=== PATIENT | male | born 1950 | race Caucasian/White ===

== ENCOUNTER → 2020-05-16 15:56 | Outpatient (CLI) | payer MEDICARE, BC, SELFPAY ==
[2015-05-13 08:19] VITALS: BMI 41.1
[2020-05-16 18:03] LABS: Vitamin B12 631 pg/mL (211-911); Vitamin D,25 Hydroxy 22.2 ng/mL
[2020-05-16 18:08] LABS: Absolute Lymphocyte Count 1.49 X10^3/uL (0.83-4.51); Absolute Neutrophil Count 9.2 X10^3/uL (2.0-7.7); Basophil# 0.03 X10^3/uL; Basophil% 0.3 % (0-1); Eosinophil# 0.16 X10^3/uL; Eosinophils% 1.4 % (0-5); Hematocrit 44.3 % (40-54); Lymphocyte # 1.49 X10^3/ul (4.0); Lymphocyte % 12.6 % (19-41); Mean Corp Hgb Conc 31.6 g/dL (32-36); Mean Corpuscular Hgb 29.6 pg (27.0-32.0); Mean Corpuscular Volume 93.7 fL (80-94); Mean Platelet Vol. 12.3 fl (6.2-12.0); Monocyte# 0.82 X10^3/uL; NRBC Flagged by Analyzer 0 % (0-5); Neutrophil # 9.24 X10^3/uL (2.7-7.7); Neutrophil % 78.3 % (47-70); Platelet Count 234 K/mm3 (150-450); RBC Distribution Width CV 13.3 % (11.6-14.6); RBC Distribution Width SD 45.6 fl (35.1-43.9); Red Blood Count 4.73 M/mm3 (4.6-6.2); White Blood Count 11.8 K/mm3 (4.4-11.0)
[2020-05-16 18:26] LABS: ALB/GLOB Ratio 0.9 RATIO (0.9-2.4); AST(SGOT) 15 U/L (15-37); Alanine Aminotransfer ALT/SGPT 25 U/L (16-61); Albumin, Serum 3.7 g/dL (3.2-5.0); Alkaline Phosphatase 87 U/L (45-117); Anion Gap 5 (5-15); BUN 21 mg/dL (7-18); BUN/Creat Ratio 17.5 RATIO (10-20); CPK Total, Creatine Kinase 65 U/L (39-308); Calcium,Total 9.7 mg/dL (8.5-10.1); Chloride 105 mmol/L (98-107); Cholesterol 150 mg/dL (200); EST Glomerular Filtration Rate 64 mL/min (>60); Est Glom Filt Rate - Afr Amer 77 mL/min (>60); Ferritin 30 ng/mL (26-388); Globulin 4.1 g/dL (2.2-4.2); Glucose 90 mg/dL (74-106); High Density Lipoprotein 49 mg/dL; Magnesium 2.3 mg/dL (1.6-2.6); Potassium 4.6 mmol/L (3.5-5.1); Protein, Total 7.8 g/dL (6.4-8.2); Sodium Level 136 mmol/L (136-145); Thyroid Stim Hormone (TSH) 0.71 uIU/mL (0.358-3.74); Triglycerides 136 mg/dL; Very Low Density Lipoprotein 27 mg/dL (5-40)
== END ==
PROVIDERS: PCP Family Medicine; Referring Provider Family Medicine; Visit Provider Family Medicine
DX: I10 Essential (primary) hypertension (principal); E78.5 Hyperlipidemia, unspecified; R53.83 Other fatigue; R25.2 Cramp and spasm
CPT/HCPCS: 36415; 80053; 80061; 82306; 82550; 82607; 82728; 83735; 84443; 85025

== ENCOUNTER → 2020-05-28 13:53 | Outpatient (CLI) | payer MEDICARE, BC, OTHER, SELFPAY ==
--- NOTE | 2020-05-28 14:04 | ECHOCS_ITS ---
Reason For Study: MURMUR Procedure This was a 2D Doppler, Color Flow transthoracic echocardiogram. The study was technically difficult. Contrast injection was performed. Exam performed in department. Left Ventricle Normal LV size. Left ventricular systolic function is normal. The estimated ejection fraction is 65 %. Diastolic function is indeterminate. No regional wall motion abnormalities noted. Right Ventricle Normal RV size. Normal systolic function. Atria The left atrium is mildly enlarged. Normal right atrium. No doppler evidence for ASD. Bubble contrast study negative for right to left interatrial shunt. Mitral Valve There is mild mitral annular calcification. Anterior leaflet diffuse mitral valve thickening. Trivial mitral valve insufficiency. Tricuspid Valve Normal tricuspid valve. Mild tricuspid valve insufficiency. Right ventricular systolic pressure estimated to be 37 mmHg. Aortic Valve Trisinus/trileaflet aortic valve. Mild diffuse aortic valve thickening. Moderate diffuse aortic valve calcification. Severe aortic stenosis. Pulmonic Valve The pulmonic valve is not well visualized. Great Vessels Mild to moderately dilated aortic root. Pericardium/Pleural No pericardial effusion. Medication 22 gauge I.V. with prn adaptor inserted into right arm. Performed a rapid injection of agitated mix of 9 cc saline and 1cc air to assess for atrial septal defect. Diluted definity 5.0ml given slow IV push to enhance endocardial definition. MMode/2D Measurements & Calculations LVIDd: 4.3 cm IVSd: 1.0 cm LVOT diam: 2.0 cm LVIDs: 2.6 cm LVPWd: 1.1 cm RVDd: 4.0 cm FS: 38.9 % LVOT area: 3.2 cm2 Ao root diam: 4.5 cm LAV(MOD-bp): 59.0 ml LA A4 area: 22.6 cm2 LAV(MOD-bp) Indexed: 24.5 ml/m2 LAV(MOD-sp2): 49.2 ml LAV(MOD-sp4): 66.7 ml LA dimension(2D): 4.3 cm RA A4 area: 21.1 cm2 Time Measurements MV dec time: 0.40 sec Doppler Measurements & Calculations MV E max girish: 54.6 cm/sec Lat Peak E' Girish: 5.4 cm/sec Med Peak E' Girish: 4.9 cm/sec MV A max girish: 85.4 cm/sec E/E' lat: 10.2 E/E' med: 11.1 MV E/A: 0.64 Ao V2 max: 388.3 cm/sec LV V1 max: 88.8 cm/sec SV(LVOT): 66.2 ml Ao max P.8 mmHg LV V1 max P.2 mmHg Ao V2 mean: 296.4 cm/sec LV V1 mean P.1 mmHg Ao mean P.6 mmHg LV V1 mean: 70.5 cm/sec Ao V2 VTI: 82.5 cm LV V1 VTI: 20.9 cm RAY(I,D): 0.80 cm2 RAY(V,D): 0.72 cm2 PA V2 max: 122.2 cm/sec TR max girish: 292.9 cm/sec TR max P.3 mmHg Interpretation Summary The study was technically difficult. Contrast injection was performed. Left ventricular systolic function is normal. The estimated ejection fraction is 65 %. The left atrium is mildly enlarged. There is mild mitral annular calcification. Anterior leaflet diffuse mitral valve thickening. Trivial mitral valve insufficiency. Mild tricuspid valve insufficiency. Severe aortic stenosis. Mild to moderately dilated aortic root. Right ventricular systolic pressure estimated to be 37 mmHg. Diastolic function is indeterminate. Ordering Physician: Marcial Drake Referring Physician: Marcial Drake Performed By: Melisa Pena, RDCS, RVT
== END ==
PROVIDERS: PCP Family Medicine; Referring Provider Family Medicine; Visit Provider Family Medicine
DX: R01.1 Cardiac murmur, unspecified (principal)
CPT/HCPCS: 93306; Q9957; A4216; C8929

== ENCOUNTER 2020-07-03 06:53 | Day surgery (SDC) | payer MEDICARE, BC, SELFPAY ==
[2020-06-27 10:34] VITALS: BMI 37.0
--- NOTE | 2020-06-28 14:32 | RAD_ITS ---
STUDY: X-RAY CHEST REASON FOR EXAM: Male, 69 years old. chronic fatigue, family physician checking to see if pt has failing heart valve. TECHNIQUE: PA and lateral views of the chest. COMPARISON: None. FINDINGS: The lungs are clear and expanded. There is no demonstrated pleural abnormality. Normal size heart. Normal mediastinum and emily. Normal visualized pulmonary arteries. Normal visualized aortic arch and descending thoracic aorta. Normal visualized thoracic spine. Normal visualized ribs, clavicles, and shoulders. There is no demonstrated abnormality of the visualized soft tissue structures of the upper abdomen. RAD/Chest PA and Lateral IMPRESSION: Normal x-ray examination of the chest. Electronically Signed: Castro Holley MD at 17:56 EST Tel , Service support ,
[2020-06-28 15:04] LABS: Absolute Lymphocyte Count 2.02 X10^3/uL (0.83-4.51); Absolute Neutrophil Count 6.9 X10^3/uL (2.0-7.7); Basophil# 0.04 X10^3/uL; Basophil% 0.4 % (0-1); Eosinophil# 0.33 X10^3/uL; Eosinophils% 3.2 % (0-5); Hematocrit 46.1 % (40-54); Hemoglobin 14.9 g/dL (13.0-16.5); Lymphocyte # 2.02 X10^3/ul (4.0); Lymphocyte % 19.8 % (19-41); Mean Corp Hgb Conc 32.3 g/dL (32-36); Mean Corpuscular Hgb 29.6 pg (27.0-32.0); Mean Corpuscular Volume 91.7 fL (80-94); Mean Platelet Vol. 11.2 fl (6.2-12.0); Monocyte# 0.83 X10^3/uL; Monocyte% 8.1 % (0-10); NRBC Flagged by Analyzer 0 % (0-5); Neutrophil # 6.93 X10^3/uL (2.7-7.7); Neutrophil % 68.1 % (47-70); Platelet Count 337 K/mm3 (150-450); RBC Distribution Width CV 13.2 % (11.6-14.6); RBC Distribution Width SD 44.2 fl (35.1-43.9); Red Blood Count 5.03 M/mm3 (4.6-6.2); White Blood Count 10.2 K/mm3 (4.4-11.0)
[2020-06-28 15:23] LABS: Partial Thromboplast Time 30.9 Seconds (24.1-36.2); Prothrombin Time (Protime)PT. 13.1 SECONDS (11.7-14.9)
[2020-06-28 15:54] LABS: Anion Gap 8 (5-15); BUN 22 mg/dL (7-18); BUN/Creat Ratio 17.5 RATIO (10-20); Calcium,Total 10.1 mg/dL (8.5-10.1); Chloride 108 mmol/L (98-107); Creatinine, Serum 1.26 mg/dL (0.70-1.30); EST Glomerular Filtration Rate 60 mL/min (>60); Est Glom Filt Rate - Afr Amer 73 mL/min (>60); Glucose 109 mg/dL (74-106); Sodium Level 141 mmol/L (136-145)
[2020-07-02 07:23] VITALS: BMI 37.0
--- NOTE | 2020-07-02 20:01 | PCM.HP.BLA ---
Problem List (1) Nonrheumatic aortic (valve) stenosis Status: Chronic (2) Dilated aortic root Status: Acute History and Physical Date of Admission: 07/03/20 [facility] [address] [place] [address] OFFICE VISIT Date of Service: 06/27/20 MR#: [id number] Acct: [id number] Name: BRANNON LUCIA Rep #: [id number] : 1950 Provider: Dr. Juan Valdivia MD Age/Sex: 69/M Location: [facility] [place] Status: Signed HPI HPI History of Present Illness Details: This is a 69-year-old white male who presents today for outpatient cardiovascular consultation based upon findings of a cardiac murmur and findings of aortic stenosis which by transthoracic echocardiogram was considered severe as well as dilatation of the thoracic aortic root. He states for some time he has been told he has a cardiac murmur. He states he underwent evaluation at the [facility] outpatient office with an echocardiogram and/or a stress echocardiogram. To the best of his knowledge she was told everything was okay although he states he does remember being told that his aortic valve was not well seen. More recently he underwent a transthoracic echocardiogram at [facility] per request of his PCP. The results are as noted below. It did appear that he had findings compatible with severe aortic valve stenosis. He notes that he does not believe he has ongoing chest discomfort nor is he had overt episodes of acute orthopnea or PND or peripheral pitting edema. He has denied any near-syncope or syncope. He states that he does feel more tired and fatigued over time. He notes this has been progressively getting worse over the last 5 years. He had an ECG in the office today. He was noted to have sinus rhythm with the appearance of an incomplete right bundle branch block pattern and poor R wave progression. Intake Vital Signs 06/27/20 Height 6 ft 06/27/20 Weight: 273 lb 2 oz 06/27/20 BP 126/70 H 06/27/20 Blood Pressure Location Lt brachial 06/27/20 Position Sitting 06/27/20 Respiration 16 06/27/20 Pulse 76 06/27/20 Pulse Source Auscultation Intake Visit Reasons: Aortic Stenosis/ Enlargemant of aorta/ PCP ref. Oxygen Equipment Preparer Required: No Accompanied by: Self Allergies simvastatin [From Zocor] Allergy (Verified 06/27/20 10:35) Other Medications Atorvastatin Calcium [Lipitor] 20 mg PO QHS 04/30/15 [History Confirmed 06/27/20] lisinopril 20 mg-hydrochlorothiazide 12.5 mg tablet 1 tab PO DAILY 06/17/20 [History Confirmed 06/27/20] aspirin 81 mg tablet,delayed release 81 mg PO DAILY #1 tab 06/27/20 [Rx Confirmed 06/27/20] [facility] Medical History Pure hypercholesterolemia (Chronic) Essential hypertension (Chronic) Dilated aortic root (Acute) Nonrheumatic aortic (valve) stenosis (Chronic) Surgical History History of ankle surgery (Resolved) History of total left knee replacement (TKR) (Resolved) Family History Father CAD (coronary artery disease) Social History (Updated 06/27/20 @ 13:[address] Juan Valdivia MD) Smoking Status: Former smoker alcohol intake: current details: occasional substance use type: does not use caffeine: Yes (occasional) ROS Const Const: Positive for fatigue; negative for weakness, frequent falls, excessive sweating, weight gain or weight loss Eyes Eyes: Negative for transient loss of vision, blurry vision or change in vision ENT ENT: Negative for dizziness or balance problems Cardio Chest Pain: No Palpitations: No Edema: None Muscle aches with walking: None Resp Respiratory: Positive for other (wakes on occasion SOB); negative for SOB with activity or SOB at rest GI GI: Negative vomiting or vomiting blood/hematemesis : Negative for hematuria Musc Musc: Positive for muscle aches/ myalgia (chronic back pain) and joint pain (bilat hips); negative for muscle weakness or balance problems Skin Skin: Negative non-healing lesions or rash Neuro Neuro: Positive for lightheadedness (occasional bending over, quick moves); negative for dizziness, orthostatic symptoms, frequent falls, weakness or blurry vision Jude Hematologic/Lymphatic: Negative for easy bleeding Endo Endo: Positive for fatigue; negative for excessive sweating Psych Psych: Negative for anxiety or depression Allergy Allergy/Immunology: Negative for hives, Negative for rash Cardiology Exam Const Appearance: cooperative, healthy appearing, comfortable, no acute distress, well developed and well groomed Nutritional Appearance: overweight Orientation: alert, awake and oriented x3 Head Head: normal to inspection, normocephalic and atraumatic Ears: hearing grossly normal bilaterally Nose: external nose normal Face and Sinus: face symmetric Eyes Eyelids: eyelids normal Conjunctivae: conjunctivae normal Pupils: PERRL EOM: EOM intact bilaterally Neck Neck: normal visual inspection and full ROM Carotids: normal carotid upstroke Chest Chest inspection: normal inspection of the chest, symmetric chest movement and normal respiratory effort Auscultation: Bilateral: Clear to Auscultation Cardio Palpation: normal PMI Rate: regular rate Rhythm: regular rhythm Heart sounds: S1 normal and diminished A2 Murmur: Grade 3/6, harsh, crescendo-decrescendo, LLSB, LVOT, sternal notch and radiates to carotids GI GI: normal to inspection, soft and bowel sounds present Neuro General: alert, awake, oriented x3 and moves all extremities Skin Skin: no rashes or lesions noted Extremities Pulses: Normal: Right Radial Pulse, Left Radial Pulse Lower Extremity Edema: None: Bilateral Psych Psychological: normal affect Assessment & Plan 1. Nonrheumatic aortic (valve) stenosis I35.0 Plan At the present time he does have findings compatible with aortic valve stenosis. Based upon his studies there is concern that it is severe. A discussion was held with the patient with as well as with his via FaceTime regarding this issue. It was recommended he consider undergoing additional cardiovascular evaluation which would include a diagnostic cardiac catheterization to evaluate his coronary anatomy as part of his evaluation in preparation for referral to a tertiary care center for consideration for a heart team evaluation for possible TAVR versus surgical based aortic valve replacement. The procedure and risks were discussed with the patient. He states he will discuss this with his privately and notify the office of how he wants to proceed. Orders Orders: 12 Lead EKG performed by [facility] Today 2. Aortic root dilatation I77.810 Plan The patient does also have findings compatible with dilatation of the aortic root based upon his transthoracic echocardiogram. This may also require further assessment, depending upon his future evaluation care, with a chest CT scan. It may also play a role in how his aortic valve is addressed. 3. Pure hypercholesterolemia E78.00 Plan It appears he had his lipid labs performed in April of this year. His total cholesterol was 150 with an LDL 74 and an HDL of 49. His triglycerides were 136. He will continue his lipid-lowering medication. Orders Orders: 12 Lead EKG performed by [facility] Today 4. Essential hypertension I10 Plan His blood pressure appears to be under reasonably good control. He will continue his medical management. Orders Orders: 12 Lead EKG performed by [facility] Today Plan Detail Other Medications New: aspirin 81 mg PO DAILY 1 tab 0RF Additional Comments The above was discussed with the patient as well as noted with his via FaceTime. They will discuss additional evaluation care notify the office of how he wants to proceed. Thank you for allowing me to participate in the care of your patient. Please don't hesitate to call if any issues arise. This note was generated using a voice recognition system and there may be incorrect words, spelling or punctuation that were not noted when reviewing the office note prior to saving. Follow Up 3 Months (PFM) Coding Level of Care Code Off vis,new,level 4 Diagnoses Nonrheumatic aortic (valve) stenosis I35.0 Aortic root dilatation I77.810 Pure hypercholesterolemia E78.00 Essential hypertension I10 Coding Level of Care Code Off vis,new,level 4 Diagnoses Nonrheumatic aortic (valve) stenosis I35.0 Aortic root dilatation I77.810 Pure hypercholesterolemia E78.00 Essential hypertension I10 Supplemental Info Supplemental Information Echocardiogram: 05-28-2020 Interpretation Summary The study was technically difficult. Contrast injection was performed. Left ventricular systolic function is normal. The estimated ejection fraction is 65 %. The left atrium is mildly enlarged. There is mild mitral annular calcification. Anterior leaflet diffuse mitral valve thickening. Trivial mitral valve insufficiency. Mild tricuspid valve insufficiency. Severe aortic stenosis. Mild to moderately dilated aortic root. Right ventricular systolic pressure estimated to be 37 mmHg. Diastolic function is indeterminate. Labs LDL Cholesterol 74 mg/dL (0-130) 05/16/20 HDL Cholesterol 49 mg/dL (40-) 05/16/20 Triglycerides 136 mg/dL (-199) 05/16/20 VLDL Cholesterol 27 mg/dL (5-40) 05/16/20 Diagnostics Electrocardiogram 06/27/20 Echocardiogram 05/28/20 06/27/20 1339 <Electronically signed by Juan Valdivia MD> Date [facility] Signature: Date (if applicable) CC: Dr. Brannon Drake MD ~ Her H&P noted changes: The patient has, as per the outpatient office note, discussed his clinical case with his family members. He is elected to proceed, as previously recommended, with diagnostic cardiac catheterization in anticipation of CT surgery referral for aortic valve replacement and possible aortic root repair. The procedure and risks were discussed with the patient. He was agreeable to this approach. Procedure Criteria Procedure Type: Elective COVID Risk Discussion: The surgeon/proceduralist and patient have discussed in detail the risk of exposure to and/or potential harm posed by the COVID-19 virus with having a surgery/procedure at this time versus the risk of delaying the surgery/procedure. It is not possible to know either the risk of delaying the surgery or procedure or chance of getting an infection with perfect accuracy, but a joint decision was made between the patient and the surgeon/proceduralist to proceed at this time with the scheduled surgery/procedure as indicated on the consent form.
--- NOTE | 2020-07-03 10:30 | CL.D_ITS ---
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 The risks and benefits of the procedure as well as a full d escription of our services here and current unavailability of surgical backup were fully explained to the patient and/or their significant other prior to the catheterization. The Timeout was completed, verifying the correct patient and procedure. The patient's procedural site was prepped and draped in the usual fashion. Local anesthetic was given subcutaneously to right radial region with Lidocaine 2% . Using a modified Seldinger technique, arterial access was obtained via the right radial artery, a 6 Fr sheath was inserted. Left Coronary Artery selective angiography was performed in multiple views u sing a 5 Fr. 4.0 [place] catheter. Right Coronary Artery selective angiography was then performed in mu ltiple views using a 5 Fr. JR 4 catheter. Ascending (root) aorta selective angiography was then perfo rmed in single view using an angled pigtail catheter.. Ascending (root) aorta selective angiography was then performed in single view using an angled pigtail catheter..The arterial sheath w as pulled and a TR Band was applied for hemostasis CORONARY ANGIOGRAPHY DOMINANCE: Right Dominant LEFT HEART ASSESSMENT Left Ventricular Ejection Fraction: Not assessed LEFT MAIN: Mild calcification LEFT ANTERIOR DESCENDING ARTERY: PROX LAD: Moderate calcification, Mild luminal irregularities CIRCUMFLEX ARTERY: PROX CIRC: Mild luminal irregularities RIGHT CORONARY ARTERY: Mild luminal irregularities PROX RCA: Moderate calcification, diffuse: eccentric: 25 % Stenosis MID RCA: 25 - 50 % stenosis followed by eccentric 25 % Stenosis VALVE FINDINGS: Aortic Valve: restricted restricted AORTIC ROOT: Dilated COMPLICATIONS No Complications PROCEDURE MEDICATIONS Fentanyl 50 mcg IV Versed 1 mg IV Fentanyl 50 mcg IV Versed 1 mg IV Oxygen: 2 L/min via nasal cannula Heparin diluted in 23cc Heparinized saline. Patient given 10cc IA of this solution. 07/03/2020 09:22: 28 Heparin diluted in 23cc Heparinized saline. Patient given 10cc IA of this solution. 07/03/2020 09:22: 28 Verapamil 2.5mg, Ntg 100mcgs, 2000 units of Heparin diluted in 23cc Heparinized saline. Patient give n 10cc IA of this solution. 07/03/2020 09:22:28 SUMMARY OF HEMODYNAMIC DATA Time AIR REST ECG 07:23:18 AO 116/81 (93) SA 09:44:15 AO 154/93 (118) 09:57:39 Signed By Juan Valdivia MD On 07/03/2020 10:29:46 Juan Valdivia MD
== END 2020-07-03 11:50 | disposition home or self-care (01) ==
LOC: CLSP 06:54
PROVIDERS: PCP Family Medicine; Referring Provider Internal Medicine Cardiovascular Disease; Visit Provider Internal Medicine Cardiovascular Disease
DX: I25.10 Atherosclerotic heart disease of native coronary artery without angina pectoris (principal); R06.09 Other forms of dyspnea; I35.0 Nonrheumatic aortic (valve) stenosis; E78.00 Pure hypercholesterolemia, unspecified; I77.810 Thoracic aortic ectasia; Z79.82 Long term (current) use of aspirin; I45.10 Unspecified right bundle-branch block; Z79.899 Other long term (current) drug therapy; I10 Essential (primary) hypertension; Z87.891 Personal history of nicotine dependence
CPT/HCPCS: 36415; 71046; 80048; 85025; 85610; 85730; 93454; 93567; 99152; 99153; J7040; Q9967; C1769; C1894

== ENCOUNTER → 2020-10-22 08:22 | Outpatient (CLI) | payer MEDICARE, BC, SELFPAY ==
[2020-09-25 09:56] VITALS: BMI 34.9
[2020-10-22 10:01] LABS: Absolute Lymphocyte Count 2.15 X10^3/uL (0.83-4.51); Absolute Neutrophil Count 6.1 X10^3/uL (2.0-7.7); Basophil# 0.06 X10^3/uL; Basophil% 0.6 % (0-1); Eosinophil# 0.52 X10^3/uL; Eosinophils% 5.3 % (0-5); Hematocrit 44.4 % (40-54); Hemoglobin 13.9 g/dL (13.0-16.5); Lymphocyte # 2.15 X10^3/ul (4.0); Lymphocyte % 21.8 % (19-41); Mean Corp Hgb Conc 31.3 g/dL (32-36); Mean Corpuscular Hgb 28.3 pg (27.0-32.0); Mean Corpuscular Volume 90.2 fL (80-94); Mean Platelet Vol. 11.5 fl (6.2-12.0); Monocyte# 1.04 X10^3/uL; Monocyte% 10.5 % (0-10); NRBC Flagged by Analyzer 0 % (0-5); Neutrophil # 6.06 X10^3/uL (2.7-7.7); Neutrophil % 61.4 % (47-70); Platelet Count 371 K/mm3 (150-450); RBC Distribution Width CV 13.9 % (11.6-14.6); RBC Distribution Width SD 46.2 fl (35.1-43.9); Red Blood Count 4.92 M/mm3 (4.6-6.2); White Blood Count 9.9 K/mm3 (4.4-11.0)
[2020-10-22 10:19] LABS: ALB/GLOB Ratio 0.9 RATIO (0.9-2.4); AST(SGOT) 16 U/L (15-37); Alanine Aminotransfer ALT/SGPT 25 U/L (16-61); Albumin, Serum 3.7 g/dL (3.2-5.0); Alkaline Phosphatase 117 U/L (45-117); Anion Gap 4 (5-15); BUN 17 mg/dL (7-18); BUN/Creat Ratio 16.8 RATIO (10-20); Calcium,Total 10.2 mg/dL (8.5-10.1); Chloride 105 mmol/L (98-107); Cholesterol 151 mg/dL (200); Creatinine, Serum 1.01 mg/dL (0.70-1.30); EST Glomerular Filtration Rate 78 mL/min (>60); Est Glom Filt Rate - Afr Amer 94 mL/min (>60); Globulin 4.3 g/dL (2.2-4.2); Glucose 91 mg/dL (74-106); High Density Lipoprotein 41 mg/dL; Potassium 4.2 mmol/L (3.5-5.1); Sodium Level 135 mmol/L (136-145); Triglycerides 118 mg/dL; Very Low Density Lipoprotein 24 mg/dL (5-40)
[2020-10-22 10:29] LABS: Vitamin D,25 Hydroxy 33.7 ng/mL
== END ==
PROVIDERS: PCP Family Medicine; Referring Provider Family Medicine; Visit Provider Family Medicine
DX: I10 Essential (primary) hypertension (principal); E78.5 Hyperlipidemia, unspecified; E55.9 Vitamin D deficiency, unspecified
CPT/HCPCS: 36415; 80053; 80061; 82306; 85025

== ENCOUNTER → 2021-01-17 09:07 | Outpatient (CLI) | payer MEDICARE, BC, SELFPAY ==
[2021-01-06 09:56] VITALS: BMI 36.1
[2021-01-17 10:10] LABS: Absolute Lymphocyte Count 2.64 X10^3/uL (0.83-4.51); Absolute Neutrophil Count 5.9 X10^3/uL (2.0-7.7); Basophil# 0.03 X10^3/uL; Basophil% 0.3 % (0-1); Eosinophils% 2.1 % (0-5); Hematocrit 47.2 % (40-54); Hemoglobin 15.4 g/dL (13.0-16.5); Lymphocyte # 2.64 X10^3/ul (0.83-4.51); Lymphocyte % 27.5 % (19-41); Mean Corp Hgb Conc 32.6 g/dL (32-36); Mean Corpuscular Hgb 28.6 pg (27.0-32.0); Mean Corpuscular Volume 87.7 fL (80-94); Mean Platelet Vol. 11.5 fl (6.2-12.0); Monocyte# 0.84 X10^3/uL; Monocyte% 8.7 % (0-10); NRBC Flagged by Analyzer 0 % (0-5); Neutrophil # 5.87 X10^3/uL (2.7-7.7); Neutrophil % 61.1 % (47-70); Platelet Count 282 K/mm3 (150-450); RBC Distribution Width CV 15.1 % (11.6-14.6); RBC Distribution Width SD 48.7 fl (35.1-43.9); Red Blood Count 5.38 M/mm3 (4.6-6.2); White Blood Count 9.6 K/mm3 (4.4-11.0)
[2021-01-17 10:39] LABS: Vitamin D,25 Hydroxy 35.2 ng/mL
[2021-01-17 10:56] LABS: ALB/GLOB Ratio 0.9 RATIO (0.9-2.4); AST(SGOT) 14 U/L (15-37); Alanine Aminotransfer ALT/SGPT 20 U/L (16-61); Albumin, Serum 3.6 g/dL (3.2-5.0); Alkaline Phosphatase 102 U/L (45-117); Anion Gap 5 (5-15); BUN 18 mg/dL (7-18); BUN/Creat Ratio 18.1 RATIO (10-20); Calcium,Total 9.8 mg/dL (8.5-10.1); Chloride 105 mmol/L (98-107); Cholesterol 174 mg/dL (200); Creatinine, Serum 0.99 mg/dL (0.70-1.30); EST Glomerular Filtration Rate 79 mL/min (>60); Est Glom Filt Rate - Afr Amer 96 mL/min (>60); Glucose 90 mg/dL (74-106); High Density Lipoprotein 48 mg/dL; Potassium 4.4 mmol/L (3.5-5.1); Protein, Total 7.6 g/dL (6.4-8.2); Sodium Level 136 mmol/L (136-145); Triglycerides 108 mg/dL; Very Low Density Lipoprotein 22 mg/dL (5-40)
== END ==
PROVIDERS: PCP Family Medicine; Referring Provider Family Medicine; Visit Provider Family Medicine
DX: I10 Essential (primary) hypertension (principal); E78.5 Hyperlipidemia, unspecified; E55.9 Vitamin D deficiency, unspecified
CPT/HCPCS: 36415; 80053; 80061; 82306; 85025

== ENCOUNTER → 2021-01-28 14:23 | Outpatient (CLI) | payer MEDICARE, BC, SELFPAY ==
[2021-01-06 09:56] VITALS: BMI 36.1
--- NOTE | 2021-01-28 14:26 | US_ITS ---
STUDY: ULTRASOUND - URINARY BLADDER REASON FOR EXAM: Male, 70 years old. INCOMPLETE BLADDER EMPTYING TECHNIQUE: Ultrasound evaluation of the urinary bladder was performed with real-time and static villegas-scale imaging. COMPARISON: None. FINDINGS: There is no right UVJ calculus. There is a visualized right ureteral jet. There is no left UVJ calculus. There is a visualized left ureteral jet. The distended volume of the urinary bladder is 208.6 ml. The empty volume of the urinary bladder is 40.9 ml. The bladder wall is within normal limits. The bladder wall measures . There is no demonstrated bladder wall mass lesion. There are no demonstrated bladder calculi. US/Post Void Residual Bladder IMPRESSION: Normal ultrasound of the urinary bladder. Electronically Signed: Jj Roper MD at 15:56 EDT , Service support ,
== END ==
PROVIDERS: PCP Family Medicine; Referring Provider Family Medicine; Visit Provider Family Medicine
DX: R33.9 Retention of urine, unspecified (principal)
CPT/HCPCS: 51798

== ENCOUNTER → 2021-02-12 15:51 | Outpatient (CLI) | payer MEDICARE, BC, SELFPAY ==
[2021-01-06 09:56] VITALS: BMI 36.1
[2021-02-12 16:25] LABS: EGFR FINGERSTICK > 60.0000 mL/min (>60)
== END ==
PROVIDERS: PCP Family Medicine; Referring Provider Otolaryngology; Visit Provider Otolaryngology
DX: H93.12 Tinnitus, left ear (principal)

== ENCOUNTER → 2021-05-19 08:12 | Outpatient (CLI) | payer MEDICARE, BC, SELFPAY ==
[2021-05-19 08:16] LABS: Bacteria 0 SEEN /hpf (None Seen); Mucous, Urine 0 SEEN /hpf (<or=2+); Red Blood Cells-Urine 0 SEEN /hpf (0-5); Squamous Epithelial Cells - UA 0 SEEN /hpf (0-5); White Blood Cells 0 SEEN /hpf (0-5)
[2021-05-19 10:16] LABS: Absolute Lymphocyte Count 2.16 X10^3/uL (0.83-4.51); Absolute Neutrophil Count 5.8 X10^3/uL (2.0-7.7); Basophil# 0.04 X10^3/uL; Basophil% 0.4 % (0-1); Eosinophil# 0.45 X10^3/uL; Eosinophils% 4.8 % (0-5); Hematocrit 46.3 % (40-54); Hemoglobin 14.9 g/dL (13.0-16.5); Lymphocyte # 2.16 X10^3/ul (0.83-4.51); Lymphocyte % 23.2 % (19-41); Mean Corp Hgb Conc 32.2 g/dL (32-36); Mean Corpuscular Hgb 29.7 pg (27.0-32.0); Mean Corpuscular Volume 92.2 fL (80-94); Mean Platelet Vol. 12.3 fl (6.2-12.0); Monocyte# 0.86 X10^3/uL; Monocyte% 9.2 % (0-10); NRBC Flagged by Analyzer 0 % (0-5); Neutrophil # 5.76 X10^3/uL (2.7-7.7); Platelet Count 247 K/mm3 (150-450); RBC Distribution Width CV 13.3 % (11.6-14.6); RBC Distribution Width SD 45.1 fl (35.1-43.9); Red Blood Count 5.02 M/mm3 (4.6-6.2); White Blood Count 9.3 K/mm3 (4.4-11.0)
[2021-05-19 10:22] LABS: Color, Urine Yellow (Yellow); Glucose, Dipstick Normal (Normal); Ketone-Dipstick Negative (Negative); Leukocyte Esterase-Dipstick Negative /ul (Negative); Nitrite-Dipstick Negative (Negative); Occult Blood-Urine Negative /ul (Negative); Protein-Dipstick Negative (Negative); Urine Bilirubin Dipstick Negative (Negative); Urine Clarity Clear (Clear); Urine Urobilinogen Normal (Normal)
[2021-05-19 10:31] LABS: Vitamin D,25 Hydroxy 34.2 ng/mL
[2021-05-19 10:36] LABS: ALB/GLOB Ratio 0.8 RATIO (0.9-2.4); AST(SGOT) 16 U/L (15-37); Alanine Aminotransfer ALT/SGPT 26 U/L (16-61); Albumin, Serum 3.4 g/dL (3.2-5.0); Alkaline Phosphatase 103 U/L (45-117); Anion Gap 7 (5-15); BUN 19 mg/dL (7-18); Calcium,Total 9.7 mg/dL (8.5-10.1); Chloride 104 mmol/L (98-107); Cholesterol 152 mg/dL (200); EST Glomerular Filtration Rate 78 mL/min (>60); Est Glom Filt Rate - Afr Amer 95 mL/min (>60); Globulin 4.4 g/dL (2.2-4.2); Glucose 89 mg/dL (74-106); High Density Lipoprotein 39 mg/dL; Potassium 4.2 mmol/L (3.5-5.1); Protein, Total 7.8 g/dL (6.4-8.2); Sodium Level 136 mmol/L (136-145); Triglycerides 128 mg/dL; Very Low Density Lipoprotein 26 mg/dL (5-40)
== END ==
PROVIDERS: PCP Family Medicine; Referring Provider Family Medicine; Visit Provider Family Medicine
DX: I10 Essential (primary) hypertension (principal); E78.5 Hyperlipidemia, unspecified; E55.9 Vitamin D deficiency, unspecified
CPT/HCPCS: 36415; 80053; 80061; 81001; 82306; 85025

== ENCOUNTER 2021-09-05 07:37 | Outpatient (CLI) | payer MEDICARE, BC, SELFPAY ==
--- NOTE | 2021-09-05 07:47 | ECHOCS_ITS ---
Reason For Study: Valve replacement Eval Procedure This was a 2D Doppler, Color Flow transthoracic echocardiogram. The study was technically difficult. Contrast injection was performed. Exam performed in department. Left Ventricle Normal LV size. Left ventricular systolic function is normal. The estimated ejection fraction is 65 %. Post operative septal motion. No evidence for diastolic dysfunction. No regional wall motion abnormalities noted. Right Ventricle Normal RV size. Normal systolic function. Atria Normal left atrium. Normal right atrium. Hypermobile atrial septum. No doppler evidence for ASD. Mitral Valve There is mild mitral annular calcification. Extension of the mitral annular calcification on the base of the posterior mitral valve leaflet. Trivial mitral valve insufficiency. Tricuspid Valve Normal tricuspid valve. Trivial tricuspid valve insufficiency. Right ventricular systolic pressure estimated to be 27 mmHg. Aortic Valve Stable appearing bioprosthetic aortic valve apparatus. Pulmonic Valve The pulmonic valve is not well visualized. Great Vessels The aortic root is not well visualized. Pericardium/Pleural No pericardial effusion. Medication 22 gauge I.V. with prn adaptor inserted into right arm. Diluted definity 3ml given slow IV push to enhance endocardial definition. MMode/2D Measurements & Calculations LVIDd: 4.5 cm IVSd: 1.1 cm LVOT diam: 2.0 cm LVIDs: 2.7 cm LVPWd: 1.2 cm RVDd: 3.7 cm FS: 40.3 % LVOT area: 3.1 cm2 LA dimension: 4.6 cm LAV(MOD-bp): 68.4 ml LA A4 area: 23.0 cm2 LAV(MOD-bp) Indexed: 28.1 ml/m2 LAV(MOD-sp2): 60.4 ml LAV(MOD-sp4): 70.7 ml RA A4 area: 19.9 cm2 Time Measurements MV dec time: 0.33 sec Doppler Measurements & Calculations MV E max girish: 66.4 cm/sec Lat Peak E' Girish: 8.3 cm/sec Med Peak E' Girish: 7.9 cm/sec MV A max girish: 102.3 cm/sec E/E' lat: 8.0 E/E' med: 8.4 MV E/A: 0.65 MV V2 max: 103.0 cm/sec MV P1/2t max girish: 68.5 cm/sec Ao V2 max: 209.3 cm/sec MV max P.2 mmHg MV P1/2t: 142.5 msec Ao max P.5 mmHg MV V2 mean: 52.3 cm/sec MV dec slope: 140.8 cm/sec2 Ao V2 mean: 142.8 cm/sec MV mean P.3 mmHg Ao mean P.4 mmHg MV V2 VTI: 33.0 cm MVA(P1/2t): 1.5 cm2 Ao V2 VTI: 46.7 cm MVA(VTI): 2.7 cm2 RAY(I,D): 1.9 cm2 RAY(V,D): 1.8 cm2 LV V1 max: 121.4 cm/sec SV(LVOT): 89.3 ml PA V2 max: 103.0 cm/sec LV V1 max P.0 mmHg LV V1 mean P.6 mmHg LV V1 mean: 87.5 cm/sec LV V1 VTI: 29.0 cm TR max girish: 247.0 cm/sec TR max P.4 mmHg ECHO/Echo Complete W/ Contrast Interpretation Summary The study was technically difficult. Contrast injection was performed. Left ventricular systolic function is normal. The estimated ejection fraction is 65 %. Post operative septal motion. Hypermobile atrial septum. There is mild mitral annular calcification. Extension of the mitral annular calcification on the base of the posterior mitr al valve leaflet. Trivial mitral valve insufficiency. Trivial tricuspid valve insufficiency. Stable appearing bioprosthetic aortic valve apparatus. Right ventricular systolic pressure estimated to be 27 mmHg. No evidence for diastolic dysfunction. Ordering Physician: Marcial Light Referring Physician: Marcial Drake Performed By: Medardo Hendrix RCS
== END 2021-09-05 23:59 | disposition home or self-care (01) ==
LOC: CVS 07:38
PROVIDERS: PCP Family Medicine; Referring Provider Nurse Practitioner Family; Visit Provider Nurse Practitioner Family
DX: I35.0 Nonrheumatic aortic (valve) stenosis (principal)
CPT/HCPCS: 93306; Q9957; A4216; C8929

== ENCOUNTER 2021-10-17 11:02 | Outpatient (CLI) | payer MEDICARE, BC, SELFPAY ==
--- NOTE | 2021-10-17 11:04 | RAD_ITS ---
STUDY: CHEST SERIES--PA AND LATERAL VIEWS OF 1109 HOURS ON 10/17/2021 REASON FOR EXAM: 71-year-old male with a cough. TECHNIQUE: A three-view standard PA and lateral chest x-ray series was performed per protocol. COMPARISON: 06/28/2020. FINDINGS: Previous sternal thoracotomy. Otherwise, normal osseous structures. No cardiomegaly or heart failure. Residue of a mitral valve replacement. No pulmonary infiltrates, atelectasis, or effusion. No evidence of a pneumonia, pneumonitis, or bronchitis. There has been an interval thoracotomy since previous study of 06/28/2020. RAD/Chest PA and Lateral IMPRESSION: 1. Previous sternal thoracotomy with mitral valve replacement. 2. No candidate for heart failure. 3. No pulmonary infiltrates, atelectasis, effusion or mass lesion. 4. No pneumonia, pneumonitis, or bronchitis. 5. Interval thoracotomy since the previous study of 06/28/2020. Electronically Signed: Kenneth Hoffman MD at 18:45 EDT ,
== END 2021-10-17 23:59 | disposition home or self-care (01) ==
LOC: MTRAD 11:03
PROVIDERS: PCP Family Medicine; Referring Provider Family Medicine; Visit Provider Family Medicine
DX: J20.9 Acute bronchitis, unspecified (principal)
CPT/HCPCS: 71046

== ENCOUNTER → 2021-11-18 | Outpatient (CLI) | payer MEDICARE, BC, SELFPAY ==
[2021-11-18 10:15] LABS: Absolute Neutrophil Count 6.4 X10^3/uL (2.0-7.7); Basophil# 0.06 X10^3/uL; Basophil% 0.6 % (0-1); Eosinophil# 0.41 X10^3/uL; Hematocrit 45.8 % (40-54); Lymphocyte % 23.5 % (19-41); Mean Corp Hgb Conc 32.8 g/dL (32-36); Mean Corpuscular Hgb 29.4 pg (27.0-32.0); Mean Corpuscular Volume 89.8 fL (80-94); Mean Platelet Vol. 12.1 fl (6.2-12.0); Monocyte# 0.94 X10^3/uL; Monocyte% 9.2 % (0-10); NRBC Flagged by Analyzer 0 % (0-5); Neutrophil # 6.38 X10^3/uL (2.7-7.7); Neutrophil % 62.4 % (47-70); Platelet Count 260 K/mm3 (150-450); RBC Distribution Width CV 13.5 % (11.6-14.6); RBC Distribution Width SD 44.4 fl (35.1-43.9); White Blood Count 10.2 K/mm3 (4.4-11.0)
[2021-11-18 10:45] LABS: ALB/GLOB Ratio 0.8 RATIO (0.9-2.4); AST(SGOT) 24 U/L (15-37); Alanine Aminotransfer ALT/SGPT 23 U/L (16-61); Albumin, Serum 3.5 g/dL (3.2-5.0); Alkaline Phosphatase 109 U/L (45-117); Anion Gap 2 (5-15); BUN 16 mg/dL (7-18); BUN/Creat Ratio 15.8 RATIO (10-20); Calcium,Total 10.1 mg/dL (8.5-10.1); Chloride 107 mmol/L (98-107); Cholesterol 145 mg/dL (200); Creatinine, Serum 1.01 mg/dL (0.70-1.30); EST Glomerular Filtration Rate 77 mL/min (>60); Est Glom Filt Rate - Afr Amer 94 mL/min (>60); Globulin 4.5 g/dL (2.2-4.2); Glucose 87 mg/dL (74-106); High Density Lipoprotein 35 mg/dL; Potassium 4.6 mmol/L (3.5-5.1); Sodium Level 136 mmol/L (136-145); Triglycerides 124 mg/dL; Very Low Density Lipoprotein 25 mg/dL (5-40)
[2021-11-18 11:28] LABS: Vitamin D,25 Hydroxy 35.8 ng/mL
== END | disposition home or self-care (01) ==
LOC: MFPLAB 08:13
PROVIDERS: PCP Family Medicine; Referring Provider Family Medicine; Visit Provider Family Medicine
DX: Z00.00 Encounter for general adult medical examination without abnormal findings (principal); E78.5 Hyperlipidemia, unspecified; E55.9 Vitamin D deficiency, unspecified
CPT/HCPCS: 36415; 80053; 80061; 82306; 85025

== ENCOUNTER → 2021-11-20 | Outpatient (CLI) | payer MEDICARE, BC, SELFPAY ==
[2021-11-20 12:54] LABS: PSA,Total - Annual Screen 2.69 ng/mL (0.00-4.00)
== END | disposition home or self-care (01) ==
LOC: MFPLAB 11:15
PROVIDERS: PCP Family Medicine; Referring Provider Family Medicine; Visit Provider Family Medicine
DX: Z12.5 Encounter for screening for malignant neoplasm of prostate (principal)
CPT/HCPCS: 36415; 84153; G0103

== ENCOUNTER 2022-01-20 08:12 | Day surgery (SDC) | payer MEDICARE, BC, SELFPAY ==
[2022-01-20 08:40] VITALS: BP 155/87; PULSE 71; RESP 16; TEMP 36.9; O2SAT 100; BMI 35.8
[2022-01-20] MEDS: Lactated Ringers 1,000 ML 15 ML IV (08:53)
--- NOTE | 2022-01-20 09:01 | HP.PCM_ITS ---
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 Aortic root enlargement Atherosclerotic heart disease of [place] coronary artery without angina pectoris Dilated aortic root Essential hypertension Nonrheumatic aortic (valve) stenosis Pure hypercholesterolemia Surgical History? History of ankle surgery History of aortic valve replacement with bioprosthetic valve (~08/22/20) History of left heart catheterization (LHC) (~07/03/20) History of total left knee replacement (TKR) Family History?(Updated 01/01/22 @ 08:16 by Mary Morrow) Father?? CAD (coronary artery disease) CVA (cerebral vascular accident) HypertensionMother Diabetes CVA (cerebral vascular accident) Social History? Smoking Status:? Never smoker alcohol intake:? current alcohol intake frequency: a few times a week substance use type:? does not use caffeine:? Yes (occasional) HPI HPI HPI: BRANNON LUCIA, is a 71 M who presents to the office today for surgical consultation regarding a referral from Dr Brannon Drake for screening colonoscopy.? A written copy of my surgical consult and recommendations will return to him.? The patient reports unaware of timing of his previous colonoscopy.? The only anticoagulant he is on his low-dose aspirin.? He does have history of an aortic valve replacement August 14, 2020 with an Brooks bioprosthesis.? He does require antibiotic for dental work.? He denies any bright red blood per rectum or melena.? Previous colonoscopy approximately 10 years ago.? No history of DVT.? No family history of colon polyps or colon cancer. ROS General General: No weight change, appetite, fatigue, colon cancer, breast cancer or weakness HEENT HEENT: No difficulty swallowing, eye injury, eye surgery, swollen glands or hoarseness Endo Endocrine: No thyroid disease, diabetes mellitus, thyroid cancer, Hair loss, heat intolerance or cold intolerance Skin Skin: No rash or changing moles Breast Breast: No left breast lump, right breast lump, nipple discharge, breast pain, abnormal mammogram, abnormal US or breast enlargement Musc Musculoskeletal: Yes back problems and arthritis; No rheumatoid arthritis, gout or joint pain Cardio Cardiovascular: Yes murmur and high blood pressure; No pacemaker, heart disease, atrial fibrillation, heart attack, heart stent, palpitations, shortness of breat with exertion or chest pain Psych Psychiatric: No depression, anxiety or hearing voices Resp Respiratory: No shortness of breath, No sleep apnea, No cough, No COPD, No asthma, No emphysema and No wheezing Gastro Gastrointestinal: No abdominal pain, No nausea or vomiting, No diarrhea, No constipation, No blood in stool, No acid reflux, No hemorrhoids, No ulcers, No gallbladder problem and No black,tarry stools Jude Hematologic: No blood thinners, No blood disorders, No bleeding, No anemia and No blood clots Neuro Neurologic: No system reviewed and no additional complaints, except as documented, No as per HPI, No abnormal gait, No abnormal hearing, No abnormal movements, No abnormal speech, No behavioral changes, No burning sensations, No confusion, No convulsions, No disequilibrium, No dizziness, No localized weakness, No frequent falls, No headache(s), No lack of coordination, No loss of vision, No memory loss, No numbness, No other visual disturbances, No radicular pain, No restless legs, No sensory deficit, No syncope, No tingling, No tremor(s), No weakness and No other Exam Const General: cooperative, comfortable and no acute distress Nutritional Appearance: obese HENMT Head: normal to inspection Eyes General: appearance normal, both eyes and all related structures Resp Effort & Inspection: normal respiratory effort Auscultation: clear to auscultation bilaterally Cardio Rate: regular rate Rhythm: regular rhythm GI Palpation: soft and no hepatosplenomegaly Auscultation: normal bowel sounds Musc Cervical Spine: normal cervical lordosis Skin General: no rashes or lesions noted Extrem General: no calf tenderness Other: Some mild nonpitting bilateral lower extremity swelling Psych Appearance: grossly normal Assessment and Plan Assessment and Plan (1) Screening for intestinal cancer: ?Status:?Acute ?Plan - Dr. Tyler Hansen MD: I recommended the patient a screening colonoscopy with possible biopsy or polypectomy as indicated.? He is aware of the technique, benefit, risk, alternatives.? He is looking forward to this being the final one required.? Because of his cardiac valve we will provide ampicillin intravenously preprocedure.? We will utilize monitored anesthesia care. We will schedule procedure at his discretion Copy: Dr Brannon Hansen M.D., F.A.C.S. I have re-examined the patient. There are no clinical changes since date of exam. Tyler Hansen M.D., F.A.C.S.
--- NOTE | 2022-01-20 10:04 | OP.COLON_ITS ---
Patient Name: Marcial Gan Procedure Date: 01/20/2022 9:31 AM Date of : 1950 Age: 71 Procedure: Colonoscopy Indications: Screening for colorectal malignant neoplasm Providers: Tyler Hansen MD Referring MD: Marcial Drake Medicines: See the Anesthesia note for documentation of the administered medications Patient Profile: Last Colonoscopy: 10 years ago. Complications: No immediate complications. Procedure: Pre-Anesthesia Assessment: - Prior to the procedure, a History and Physical was performed, and patient medications and allergies were reviewed. The patient's tolerance of previous anesthesia was also reviewed. The risks and benefits of the procedure and the sedation options and risks were discussed with the patient. All questions were answered, and informed consent was obtained. Prior Anticoagulants: The patient has taken no previous anticoagulant or antiplatelet agents. ASA Grade Assessment: III - A patient with severe systemic disease. After reviewing the risks and benefits, the patient was deemed in satisfactory condition to undergo the procedure. After I obtained informed consent, the scope was passed under direct vision. Throughout the procedure, the patient's blood pressure, pulse, and oxygen saturations were monitored continuously. The colonoscope was introduced through the anus and advanced to the cecum, identified by appendiceal orifice and ileocecal valve. The colonoscopy was performed without difficulty. The patient tolerated the procedure well. The quality of the bowel preparation was good. The ileocecal valve and the appendiceal orifice were photographed. Ampicillin 1gm IV given at start of procedure b/o cardiac valve Scope In: 9:48:02 AM Scope Withdrawal Time 0 hours 7 minutes 40 seconds Scope Out: 9:58:57 AM Total Procedure Duration Time 0 hours 10 minutes 55 seconds Findings: The digital rectal exam findings include non-thrombosed external hemorrhoids, non-thrombosed internal hemorrhoids, internal hemorrhoids that prolapse with straining, but spontaneously regress to the resting position (Grade II) and enlarged prostate. The colon (entire examined portion) appeared normal. Impression: - Non-thrombosed external hemorrhoids, non-thrombosed internal hemorrhoids, internal hemorrhoids that prolapse with straining, but spontaneously regress to the resting position (Grade II) and enlarged prostate found on digital rectal exam. - The entire examined colon is normal. - No specimens collected. Recommendation: - Discharge patient to home. - Resume previous diet. - Continue present medications. - Repeat colonoscopy is not recommended due to current age (66 years or older) for screening purposes. Procedure Code(s): --- Professional --- 00381, Colonoscopy, flexible; diagnostic, including collection of specimen(s) by brushing or washing, when performed (separate procedure) Diagnosis Code(s): --- Professional --- Z12.11, Encounter for screening for malignant neoplasm of colon K64.1, Second degree hemorrhoids K64.4, Residual hemorrhoidal skin tags N40.0, Benign prostatic hyperplasia without lower urinary tract symptoms CPT copyright 2017 [employer]. All rights reserved. The codes documented in this report are preliminary and upon land measurer review may be revised to meet current compliance requirements. Tyler Hansen MD 01/20/2022 10:04:20 AM This report has been signed electronically. Number of Addenda: 0 Note Initiated On: 01/20/2022 9:31 AM
[2022-01-20 10:05] VITALS: BP 119/80; BP 155/87; PULSE 75; RESP 16; TEMP 36.2; O2SAT 96
--- NOTE | 2022-01-20 10:05 | OP.CCLET_ITS ---
01/20/2022 Marcial Drake [address] [place] [address] Re : Colonoscopy procedure for Marcial Gan Dear Dr. Drake This procedure was performed on Thursday, January 20, 2022. My impressions and recommendations are as follows: Impressions : - Non-thrombosed external hemorrhoids, non-thrombosed internal hemorrhoids, internal hemorrhoids that prolapse with straining, but spontaneously regress to the resting position (Grade II) and enlarged prostate found on digital rectal exam. - The entire examined colon is normal. - No specimens collected. Recommendations : - Discharge patient to home. - Resume previous diet. - Continue present medications. - Repeat colonoscopy is not recommended due to current age (66 years or older) for screening purposes. My findings are described in the full procedure note, which is enclosed. If I can be of further assistance, please feel free to contact me at Doctor phone number(s): Work: . Sincerely, Tyler Hansen MD 01/20/2022 10:04:20 AM This report has been signed electronically.
[2022-01-20 10:10] VITALS: BP 131/82; BP 155/87; PULSE 74; RESP 18; O2SAT 95
[2022-01-20 10:15] VITALS: BP 144/79; BP 155/87; PULSE 68; RESP 16; O2SAT 97
[2022-01-20 10:20] VITALS: BP 118/82; BP 155/87; PULSE 73; RESP 16; TEMP 36.4; O2SAT 99
[2022-01-20 10:43] VITALS: BP 155/87
== END 2022-01-20 10:45 | disposition home or self-care (01) ==
LOC: EN 08:13 → AC 08:15
PROVIDERS: PCP Family Medicine; Referring Provider Family Medicine; Visit Provider Surgery
PROC: 0DJD8ZZ Inspection of Lower Intestinal Tract, Via Natural or Artificial Opening Endoscopic (ICD-10-PCS; CPT 45378; principal; 2022-01-20 09:10)
DX: Z12.11 Encounter for screening for malignant neoplasm of colon (principal); K64.1 Second degree hemorrhoids; K64.4 Residual hemorrhoidal skin tags; N40.0 Benign prostatic hyperplasia without lower urinary tract symptoms; I25.10 Atherosclerotic heart disease of native coronary artery without angina pectoris; E66.9 Obesity, unspecified; I10 Essential (primary) hypertension; E78.00 Pure hypercholesterolemia, unspecified; M19.90 Unspecified osteoarthritis, unspecified site; Z79.82 Long term (current) use of aspirin; Z79.899 Other long term (current) drug therapy; Z68.35 Body mass index [BMI] 35.0-35.9, adult
CPT/HCPCS: 45378; J7120; J0290; J2405

== ENCOUNTER → 2022-05-12 | Outpatient (CLI) | payer MEDICARE, BC, SELFPAY ==
[2022-05-12 11:11] LABS: Bacteria 0 SEEN /hpf (None Seen); Mucous, Urine 0 SEEN /hpf (<or=2+); Red Blood Cells-Urine 0 SEEN /hpf (0-5); Squamous Epithelial Cells - UA 0 SEEN /hpf (0-5); White Blood Cells 0 SEEN /hpf (0-5)
[2022-05-12 12:52] LABS: Absolute Neutrophil Count 4.3 X10^3/uL (2.0-7.7); Basophil# 0.04 X10^3/uL; Basophil% 0.5 % (0-1); Eosinophil# 0.34 X10^3/uL; Eosinophils% 4.6 % (0-5); Hematocrit 44.2 % (40-54); Hemoglobin 14.4 g/dL (13.0-16.5); Lymphocyte % 25.6 % (19-41); Mean Corp Hgb Conc 32.6 g/dL (32-36); Mean Corpuscular Hgb 30.3 pg (27.0-32.0); Mean Corpuscular Volume 92.9 fL (80-94); Mean Platelet Vol. 12.1 fl (6.2-12.0); Monocyte# 0.83 X10^3/uL; Monocyte% 11.2 % (0-10); NRBC Flagged by Analyzer 0 % (0-5); Neutrophil # 4.29 X10^3/uL (2.7-7.7); Neutrophil % 57.7 % (47-70); Platelet Count 257 K/mm3 (150-450); RBC Distribution Width CV 13.5 % (11.6-14.6); RBC Distribution Width SD 46.5 fl (35.1-43.9); Red Blood Count 4.76 M/mm3 (4.6-6.2); White Blood Count 7.4 K/mm3 (4.4-11.0)
[2022-05-12 13:17] LABS: Vitamin D,25 Hydroxy 36.9 ng/mL
[2022-05-12 13:17] LABS: Color, Urine Yellow (Yellow); Glucose, Dipstick Normal (Normal); Ketone-Dipstick Negative (Negative); Leukocyte Esterase-Dipstick Negative /ul (Negative); Nitrite-Dipstick Negative (Negative); Occult Blood-Urine Negative /ul (Negative); Protein-Dipstick Negative (Negative); Urine Bilirubin Dipstick Negative (Negative); Urine Clarity Clear (Clear); Urine Urobilinogen Normal (Normal)
[2022-05-12 13:25] LABS: ALB/GLOB Ratio 0.9 RATIO (0.9-2.4); AST(SGOT) 17 U/L (15-37); Alanine Aminotransfer ALT/SGPT 22 U/L (16-61); Albumin, Serum 3.6 g/dL (3.2-5.0); Alkaline Phosphatase 96 U/L (45-117); Anion Gap 4 (5-15); BUN 17 mg/dL (7-18); BUN/Creat Ratio 17.5 RATIO (10-20); Chloride 106 mmol/L (98-107); Cholesterol 139 mg/dL (200); Creatinine, Serum 0.97 mg/dL (0.70-1.30); EST Glomerular Filtration Rate 81 mL/min (>60); Est Glom Filt Rate - Afr Amer 97 mL/min (>60); Globulin 3.9 g/dL (2.2-4.2); Glucose 85 mg/dL (74-106); High Density Lipoprotein 38 mg/dL; Potassium 4.6 mmol/L (3.5-5.1); Protein, Total 7.5 g/dL (6.4-8.2); Sodium Level 137 mmol/L (136-145); Thyroid Stim Hormone (TSH) 1.22 uIU/mL (0.358-3.74); Triglycerides 128 mg/dL; Very Low Density Lipoprotein 26 mg/dL (5-40)
== END | disposition home or self-care (01) ==
LOC: MFPLAB 11:10
PROVIDERS: PCP Family Medicine; Referring Provider Family Medicine; Visit Provider Family Medicine
DX: I10 Essential (primary) hypertension (principal); E55.9 Vitamin D deficiency, unspecified
CPT/HCPCS: 36415; 80053; 80061; 81001; 82306; 84443; 85025

== ENCOUNTER → 2022-07-03 | Outpatient (CLI) | payer MEDICARE, BC, SELFPAY ==
--- NOTE | 2022-07-03 07:57 | CT_ITS ---
EXAM: CT ANGIOGRAPHY CHEST WITH INTRAVENOUS CONTRAST CLINICAL INDICATION: aortic root enlargement TECHNIQUE: Helically acquired angiography images were obtained of the chest with intravenous contrast. This CT exam was performed using one or more of the following dose reduction techniques: automated exposure control, adjustment of the mA and/or kV according to patient size, and/or use of iterative reconstruction technique. This report was created using [employer] report generation technology. MIP reconstructed images were created and reviewed. CONTRAST: IV 100mL [id number]-370 COMPARISON: None. FINDINGS: PULMONARY ARTERIES: Normal. Normal in caliber. No evidence of pulmonary embolism. AORTA: Ascending thoracic aorta measures 4.3 cm in maximum diameter. Aortic arch and descending thoracic aorta are normal in caliber. No aortic dissection LUNGS AND PLEURAL SPACES: No mass. No consolidation or edema. No pleural effusion or thickening. No pneumothorax. HEART: Aortic valve prosthesis in place. No pericardial effusion. No signs of right heart strain, ratio of right ventricle to left ventricle measures less than 1. MEDIASTINUM: Normal. No mediastinal or hilar adenopathy. Esophagus is unremarkable. No hiatal hernia. THYROID: Normal. No thyroid lesions. BONES/JOINTS: Sternotomy wires are in place. No suspicious lytic or blastic abnormality. INTRAPERITONEAL SPACE: Moderate air artery calcification. CT/CTA Chest W/WO Contrast IMPRESSION: No acute cardiopulmonary abnormality. No evidence of acute pulmonary embolism. 4.3 cm ectasia of the ascending thoracic aorta. Electronically Signed: El Medina MD at 10:58 EST ,
--- NOTE | 2022-07-03 08:10 | CDU_ITS ---
Reason For Study: Carotid Stenosis Rt. Velocities/BP Lt. Velocities/BP Prox CCA 57.8/14.9 cm/sec. Prox CCA 90.0/17.3 cm/sec. Mid CCA 57.8/11.7 cm/sec. Mid CCA 75.9/19.2 cm/sec. Dist CCA 46.7/13.9 cm/sec. Dist CCA 56.0/12.6 cm/sec. Prox ICA 35.4/9.2 cm/sec. Prox ICA 67.4/20.3 cm/sec. Mid ICA 48.5/17.1 cm/sec. Mid ICA 80.6/28.6 cm/sec. Dist ICA 94.9/30.0 cm/sec. Dist ICA 57.9/24.8 cm/sec. Rt. ICA/CCA = 1.6. Lt. ICA/CCA = 1.1. Prox ECA 130.8/17.5 cm/sec. Prox ECA 101.4/15.7 cm/sec. Rt. Vert. 51.9/16.9 cm/sec. Lt. Vert. 41.9/14.5 cm/sec. Right Extracranial There is heterogeneous, smooth atherosclerotic plaque noted in the right common carotid artery. There is heterogeneous, irregular atherosclerotic plaque noted in the right internal carotid artery. There is heterogeneous, irregular atherosclerotic plaque noted in the right external carotid artery. Antegrade flow is noted in the right vertebral artery. Left Extracranial There is heterogeneous, smooth atherosclerotic plaque noted in the left common carotid artery. There is heterogeneous, irregular atherosclerotic plaque noted in the left internal carotid artery. There is heterogeneous, irregular atherosclerotic plaque noted in the left external carotid artery. Antegrade flow is noted in the left vertebral artery. Procedure Carotid Duplex 96774. This is a Carotid Duplex examination using B-mode, color flow and specral Doppler. The exam was diagnostic. Exam performed in department. VL/Carotid Duplex Ultrasound Interpretation Summary Mild (<50%) stenosis right extracranial internal carotid. Mild (<50%) stenosis left extracranial internal carotid. Patent and antegrade vertebrals bilaterally. Ordering Physician: Marcial Drake Referring Physician: Marcial Drake Performed By: Narayan Gu RVT
[2022-07-03 08:36] LABS: CREATININE FINGERSTICK < 0.9 mg/dL (0.70-1.30); EGFR FINGERSTICK > 60.0000 mL/min (>60)
== END | disposition home or self-care (01) ==
LOC: CT 07:46
PROVIDERS: PCP Family Medicine; Visit Provider Family Medicine
DX: I77.810 Thoracic aortic ectasia (principal); I65.23 Occlusion and stenosis of bilateral carotid arteries
CPT/HCPCS: 71275; 93880; Q9967; A4216

== ENCOUNTER → 2022-12-15 | Outpatient (CLI) | payer MEDICARE, BC, SELFPAY ==
[2022-12-15 10:14] LABS: Basophil# 0.03 X10^3/uL; Basophil% 0.4 % (0-1); Eosinophil# 0.45 X10^3/uL; Eosinophils% 5.3 % (0-5); Hematocrit 47.2 % (40-54); Hemoglobin 15.6 g/dL (13.0-16.5); Lymphocyte % 25.9 % (19-41); Mean Corp Hgb Conc 33.1 g/dL (32-36); Mean Corpuscular Hgb 29.7 pg (27.0-32.0); Mean Corpuscular Volume 89.9 fL (80-94); Mean Platelet Vol. 11.6 fl (6.2-12.0); Monocyte# 0.78 X10^3/uL; Monocyte% 9.2 % (0-10); NRBC Flagged by Analyzer 0 % (0-5); Neutrophil # 5.03 X10^3/uL (2.7-7.7); Platelet Count 256 K/mm3 (150-450); RBC Distribution Width CV 13.2 % (11.6-14.6); RBC Distribution Width SD 43.6 fl (35.1-43.9); Red Blood Count 5.25 M/mm3 (4.6-6.2); White Blood Count 8.5 K/mm3 (4.4-11.0)
[2022-12-15 10:49] LABS: ALB/GLOB Ratio 0.9 RATIO (0.9-2.4); AST(SGOT) 19 U/L (15-37); Alanine Aminotransfer ALT/SGPT 23 U/L (16-61); Albumin, Serum 3.5 g/dL (3.2-5.0); Alkaline Phosphatase 92 U/L (45-117); Anion Gap 5 (5-15); BUN 17 mg/dL (7-18); BUN/Creat Ratio 17.5 RATIO (10-20); Calcium,Total 9.9 mg/dL (8.5-10.1); Chloride 110 mmol/L (98-107); Cholesterol 155 mg/dL (200); Creatinine, Serum 0.97 mg/dL (0.70-1.30); EST Glomerular Filtration Rate 80 mL/min (>60); Est Glom Filt Rate - Afr Amer 97 mL/min (>60); Glucose 102 mg/dL (74-106); High Density Lipoprotein 39 mg/dL; Potassium 4.5 mmol/L (3.5-5.1); Protein, Total 7.5 g/dL (6.4-8.2); Sodium Level 137 mmol/L (136-145); Triglycerides 132 mg/dL; Very Low Density Lipoprotein 26 mg/dL (5-40)
== END | disposition home or self-care (01) ==
LOC: MFPLAB 09:34
PROVIDERS: PCP Family Medicine; Visit Provider Family Medicine
DX: E78.5 Hyperlipidemia, unspecified (principal); I10 Essential (primary) hypertension; E55.9 Vitamin D deficiency, unspecified
CPT/HCPCS: 36415; 80053; 80061; 82306; 85025

== ENCOUNTER → 2022-12-29 | Outpatient (CLI) | payer MEDICARE, BC, SELFPAY ==
[2022-12-29 10:39] LABS: Vitamin B12 438 pg/mL (211-911); Vitamin D,25 Hydroxy 46.3 ng/mL
[2022-12-29 11:03] LABS: T4 Free Direct 0.83 ng/dL (0.76-1.46); Thyroid Stim Hormone (TSH) 1.48 uIU/mL (0.358-3.74)
== END | disposition home or self-care (01) ==
LOC: MFPLAB 09:32
PROVIDERS: PCP Family Medicine; Visit Provider Family Medicine
DX: Z12.5 Encounter for screening for malignant neoplasm of prostate (principal); E55.9 Vitamin D deficiency, unspecified; R53.83 Other fatigue
CPT/HCPCS: 36415; 82306; 82607; 84153; 84439; 84443; G0103

== ENCOUNTER → 2023-02-02 | Outpatient (CLI) | payer MEDICARE, BC, SELFPAY ==
[2023-02-02 13:12] LABS: CRP < 2.90 mg/L (0.0-3.0)
[2023-02-02 14:09] LABS: Erythrocyte Sedimentation Rate 31 mm/hr (0-20)
[2023-02-02 14:11] LABS: Absolute Lymphocyte Count 2.29 X10^3/uL (0.83-4.51); Absolute Neutrophil Count 4.8 X10^3/uL (2.0-7.7); Basophil# 0.06 X10^3/uL; Basophil% 0.7 % (0-1); Eosinophil# 0.47 X10^3/uL; Eosinophils% 5.5 % (0-5); Hematocrit 48.4 % (40-54); Hemoglobin 15.2 g/dL (13.0-16.5); Lymphocyte # 2.29 X10^3/ul (0.83-4.51); Lymphocyte % 26.6 % (19-41); Mean Corp Hgb Conc 31.4 g/dL (32-36); Mean Corpuscular Hgb 29.3 pg (27.0-32.0); Mean Corpuscular Volume 93.4 fL (80-94); Mean Platelet Vol. 12.5 fl (6.2-12.0); Monocyte# 1.02 X10^3/uL; Monocyte% 11.8 % (0-10); NRBC Flagged by Analyzer 0 % (0-5); Neutrophil # 4.75 X10^3/uL (2.7-7.7); Neutrophil % 55.2 % (47-70); Platelet Count 270 K/mm3 (150-450); RBC Distribution Width CV 13.3 % (11.6-14.6); RBC Distribution Width SD 46.5 fl (35.1-43.9); Red Blood Count 5.18 M/mm3 (4.6-6.2); White Blood Count 8.6 K/mm3 (4.4-11.0)
== END | disposition home or self-care (01) ==
LOC: MTLAB 10:35
PROVIDERS: PCP Family Medicine; Referring Provider Physician Assistant; Visit Provider Physician Assistant
DX: Z96.652 Presence of left artificial knee joint (principal)
CPT/HCPCS: 36415; 85025; 85652; 86140

== ENCOUNTER → 2023-06-28 | Outpatient (CLI) | payer MEDICARE, BC, SELFPAY ==
[2023-06-28 11:29] LABS: Absolute Lymphocyte Count 2.38 X10^3/uL (0.83-4.51); Absolute Neutrophil Count 4.5 X10^3/uL (2.0-7.7); Basophil# 0.03 X10^3/uL; Basophil% 0.4 % (0-1); Eosinophil# 0.26 X10^3/uL; Eosinophils% 3.3 % (0-5); Hematocrit 47.4 % (40-54); Hemoglobin 15.2 g/dL (13.0-16.5); Lymphocyte # 2.38 X10^3/ul (0.83-4.51); Lymphocyte % 30.2 % (19-41); Mean Corp Hgb Conc 32.1 g/dL (32-36); Mean Corpuscular Hgb 29.9 pg (27.0-32.0); Mean Corpuscular Volume 93.3 fL (80-94); Mean Platelet Vol. 11.8 fl (6.2-12.0); Monocyte# 0.67 X10^3/uL; Monocyte% 8.5 % (0-10); NRBC Flagged by Analyzer 0 % (0-5); Neutrophil # 4.52 X10^3/uL (2.7-7.7); Neutrophil % 57.2 % (47-70); Platelet Count 265 K/mm3 (150-450); RBC Distribution Width CV 13.5 % (11.6-14.6); RBC Distribution Width SD 46.6 fl (35.1-43.9); Red Blood Count 5.08 M/mm3 (4.6-6.2); White Blood Count 7.9 K/mm3 (4.4-11.0)
[2023-06-28 11:44] LABS: Vitamin D,25 Hydroxy 34.5 ng/mL
[2023-06-28 12:26] LABS: AST(SGOT) 17 U/L (15-37); Alanine Aminotransfer ALT/SGPT 21 U/L (16-61); Albumin, Serum 3.6 g/dL (3.2-5.0); Alkaline Phosphatase 79 U/L (45-117); Anion Gap 6 (5-15); BUN 18 mg/dL (7-18); BUN/Creat Ratio 17.6 RATIO (10-20); Calcium,Total 9.6 mg/dL (8.5-10.1); Chloride 107 mmol/L (98-107); Cholesterol 165 mg/dL (200); Creatinine, Serum 1.02 mg/dL (0.70-1.30); EST Glomerular Filtration Rate 76 mL/min (>60); Est Glom Filt Rate - Afr Amer 92 mL/min (>60); Globulin 3.7 g/dL (2.2-4.2); Glucose 88 mg/dL (74-106); High Density Lipoprotein 45 mg/dL; Potassium 4.1 mmol/L (3.5-5.1); Protein, Total 7.3 g/dL (6.4-8.2); Sodium Level 137 mmol/L (136-145); Thyroid Stim Hormone (TSH) 1.83 uIU/mL (0.358-3.74); Triglycerides 134 mg/dL; Very Low Density Lipoprotein 27 mg/dL (5-40)
== END | disposition home or self-care (01) ==
LOC: MFPLAB 08:20
PROVIDERS: PCP Family Medicine; Visit Provider Family Medicine
DX: R33.9 Retention of urine, unspecified (principal); E55.9 Vitamin D deficiency, unspecified; I10 Essential (primary) hypertension
CPT/HCPCS: 36415; 80053; 80061; 82306; 84443; 85025; 87086

== ENCOUNTER → 2023-06-30 | Outpatient (CLI) | payer MEDICARE, BC, SELFPAY ==
[2023-06-30 11:42] LABS: Vitamin B12 448 pg/mL (211-911)
[2023-06-30 11:59] LABS: AST(SGOT) 18 U/L (15-37); Alanine Aminotransfer ALT/SGPT 22 U/L (16-61); Albumin, Serum 3.5 g/dL (3.2-5.0); Alkaline Phosphatase 81 U/L (45-117); Bilirubin, Direct 0.16 mg/dL (0.00-0.30); Globulin 3.8 g/dL (2.2-4.2); Protein, Total 7.3 g/dL (6.4-8.2)
[2023-07-05 17:07] LABS: VITAMIN B6 5.6 ug/L (3.4-65.2); Vitamin B1, Thiamine 118.4 nmol/L (66.5-200.0)
== END | disposition home or self-care (01) ==
LOC: MFPLAB 09:28
PROVIDERS: PCP Family Medicine; Visit Provider Family Medicine
DX: E80.6 Other disorders of bilirubin metabolism (principal); G62.9 Polyneuropathy, unspecified
CPT/HCPCS: 36415; 80076; 82607; 84207; 84425

== ENCOUNTER → 2023-07-08 | Outpatient (CLI) | payer MEDICARE, BC, SELFPAY ==
--- NOTE | 2023-07-08 09:56 | CDU_ITS ---
Reason For Study: carotid stenosis Rt. Velocities/BP Lt. Velocities/BP Prox CCA 77.8/16.3 cm/sec. Prox CCA 93.8/15.7 cm/sec. Mid CCA 61.7/12.6 cm/sec. Mid CCA 87.2/19.0 cm/sec. Dist CCA 57.0/14.5 cm/sec. Dist CCA 66.3/14.6 cm/sec. Prox ICA 33.3/10.2 cm/sec. Prox ICA 53.1/9.1 cm/sec. Mid ICA 53.1/20.1 cm/sec. Mid ICA 56.4/17.9 cm/sec. Dist ICA 82.8/27.8 cm/sec. Dist ICA 61.9/19.0 cm/sec. Rt. ICA/CCA = 1.3. Lt. ICA/CCA = .7. Prox ECA 114.6/17.6 cm/sec. Prox ECA 78.4/6.9 cm/sec. Rt. Vert. 52.0/16.8 cm/sec. Lt. Vert. 52.0/15.7 cm/sec. Right Extracranial There is heterogeneous, smooth atherosclerotic plaque noted in the right common carotid artery. There is heterogeneous, irregular atherosclerotic plaque noted in the right internal carotid artery. There is heterogeneous, irregular atherosclerotic plaque noted in the right external carotid artery. Antegrade flow is noted in the right vertebral artery. Left Extracranial There is homogeneous, smooth atherosclerotic plaque noted in the left common carotid artery. There is heterogeneous, irregular atherosclerotic plaque noted in the left internal carotid artery. The atherosclerotic plaque causes acoustic shadowing. There is heterogeneous, irregular atherosclerotic plaque noted in the left external carotid artery. Antegrade flow is noted in the left vertebral artery. Procedure Carotid Duplex 11523. This is a Carotid Duplex examination using B-mode, color flow and specral Doppler. The exam was diagnostic. Exam performed in department. VL/Carotid Duplex Ultrasound Interpretation Summary Mild (<50%) stenosis right extracranial internal carotid. Mild (<50%) stenosis left extracranial internal carotid. Flow within the vertebral arteries is antegrade bilaterally. Ordering Physician: Marcial Drake Performed By: Sathish Alarcon RVT
== END | disposition home or self-care (01) ==
LOC: CVS 09:55
PROVIDERS: PCP Family Medicine; Referring Provider Family Medicine; Visit Provider Family Medicine
DX: I65.23 Occlusion and stenosis of bilateral carotid arteries (principal)
CPT/HCPCS: 93880

== ENCOUNTER → 2023-07-30 | Outpatient (CLI) | payer MEDICARE, BC, SELFPAY ==
--- NOTE | 2023-07-30 07:35 | ECHOCS_ITS ---
Reason For Study: Hx Aortic Stenosis Procedure This was a 2D Doppler, Color Flow transthoracic echocardiogram. The study was technically difficult. Contrast injection was performed. Exam performed in department. Left Ventricle Normal size and thickness. The left ventricular ejection fraction is 65 %. Stage 1 diastolic dysfunction. Right Ventricle Normal right ventricle. Atria The left atrium is severely enlarged. The right atrium is mildly enlarged. Mitral Valve Mild mitral annular calcification. Trivial mitral valve insufficiency. Tricuspid Valve Trivial tricuspid valve insufficiency. Normal pulmonary artery pressure. Aortic Valve Bioprosthetic aortic valve functioning normally. Pulmonic Valve The pulmonic valve is not well visualized. Great Vessels Normal sized aortic root. Pericardium/Pleural No pericardial effusion. Medication 22 gauge I.V. with prn adaptor inserted into right arm. Diluted definity 2ml given slow IV push to enhance endocardial definition. MMode/2D Measurements & Calculations LVIDd: 4.7 cm IVSd: 0.84 cm LVOT diam: 2.0 cm LVIDs: 3.0 cm LVPWd: 0.86 cm RVDd: 4.4 cm FS: 36.7 % LVOT area: 3.0 cm2 Ao root diam: 3.0 cm LAV(MOD-bp): 87.5 ml LVAd ap4: 31.9 cm2 LA dimension: 4.7 cm LAV(MOD-bp) Indexed: 35.6 ml/m2 LVLd ap4: 8.7 cm LAV(MOD-sp2): 71.4 ml EDV(MOD-sp4): 98.5 ml LAV(MOD-sp4): 89.5 ml EDV(sp4-el): 99.9 ml LVAs ap4: 20.0 cm2 LVLs ap4: 7.2 cm ESV(MOD-sp4): 46.0 ml ESV(sp4-el): 47.0 ml EF(MOD-sp4): 53.3 % EF(sp4-el): 53.0 % SV(MOD-sp4): 52.5 ml SV(sp4-el): 52.9 ml LA A4 area: 27.2 cm2 RA A4 area: 24.8 cm2 TAPSE: 1.5 cm Time Measurements MV dec time: 0.24 sec Doppler Measurements & Calculations MV E max girish: 67.8 cm/sec Lat Peak E' Girish: 7.4 cm/sec Med Peak E' Girish: 6.8 cm/sec MV A max girish: 104.3 cm/sec E/E' lat: 9.2 E/E' med: 10.0 MV E/A: 0.65 MV V2 max: 120.4 cm/sec MV P1/2t max girish: 73.5 cm/sec Ao V2 max: 198.4 cm/sec MV max P.8 mmHg MV P1/2t: 99.6 msec Ao max P.8 mmHg MV V2 mean: 60.1 cm/sec MV dec slope: 216.0 cm/sec2 Ao V2 mean: 129.2 cm/sec MV mean P.7 mmHg MVA(P1/2t): 2.2 cm2 Ao mean P.9 mmHg MV V2 VTI: 34.2 cm Ao V2 VTI: 43.2 cm MVA(VTI): 2.0 cm2 AV (velocity ratio): 0.52 RAY(I,D): 1.6 cm2 RAY(V,D): 1.3 cm2 LV V1 max: 88.0 cm/sec SV(LVOT): 68.0 ml PA V2 max: 97.8 cm/sec LV V1 max P.1 mmHg LV V1 mean P.9 mmHg LV V1 mean: 64.5 cm/sec LV V1 VTI: 22.4 cm TR max girish: 241.3 cm/sec TR max P.3 mmHg ECHO/Echo Complete W/ Contrast Interpretation Summary The left ventricular ejection fraction is 65 %. Stage 1 diastolic dysfunction. The left atrium is severely enlarged. The right atrium is mildly enlarged. Mild mitral annular calcification. Bioprosthetic aortic valve functioning normally. Ordering Physician: Marcial Drake Referring Physician: Marcial Drake Performed By: Medardo Hendrix RCS
--- OUTSIDE RECORDS SUMMARY | 2023-07-30 07:39 | XMS RPT_ITS | CCD ---
Author Name Unknown Address [facility] [place] [address] Organization [facility] Care Team Providers Care Grip Assembler Name Role Phone TRISH LONG Unavailable BRANNON Mercer MD Primary Care Physician [phone] MARY JANE MINAYA Attending Unavailable MARY JANE MINAYA Primary Care Unavailable MARY JANE MINAYA Admitting Unavailable Allergies Allergy Classification Reported Allergen(s) Allergy Type Date of Onset Reaction(s) Facility (1 source) Simvastatin; Translations: [simvastatin] Drug Allergy Muscle pain (finding) [facility] Work Phone: Medications Current Medications Medication Drug Class(es) Dates Sig (Normalized) Sig (Original) acetaminophen 650 mg oral tablet (1 source) Start: 08-25-2020 acetaminophen Dose : 650 mg = 2 tab(s), Oral, q4h, PRN Pain, scale 1-3, 0 Refill(s) Start Date: 08/25/20 Status: Ordered aspirin 325 mg oral tablet (1 source) Platelet Aggregation Inhibitor, Nonsteroidal Anti-inflammatory Drug Start: 08-06-2020 aspirin 325 mg oral tablet Dose : 325 mg = 1 tab(s), Oral, qHS, 0 Refill(s) Start Date: 08/06/20 Status: Ordered atorvastatin 20 mg oral tablet (1 source) HMG-CoA Reductase Inhibitor Start: 07-16-2020 Lipitor 20 mg oral tablet Dose : 20 mg = 1 tab(s), Oral, qHS, 0 Refill(s) Start Date: 07/16/20 Status: Ordered metoprolol tartrate 50 mg oral tablet (1 source) beta-Adrenergic Darrion Start: 05-08-2021 metoprolol succinate 50 mg oral TABLET extended release Dose : 50 mg = 1 tab(s), Oral, qDay, Do not crush or chew (controlled release), # 30 tab(s), 0 Refill(s) Start Date: 05/08/21 Status: Ordered Vitamin D3 5000 intl units (125 mcg) oral capsule (1 source) Start: 08-06-2020 Vitamin D3 5000 intl units (125 mcg) oral capsule Dose : 5,000 International_Unit = 1 cap(s), Oral, qDay, 0 Refill(s) Start Date: 08/06/20 Status: Ordered Problems Active Problems Problem Classification Problem Date Documented Da te Episodic/Chronic Aortic; peripheral; and visceral artery aneurysms (1 source) Aneurysm of ascending aorta 08-06-2020 Chronic Heart valve disorders (2 sources) Aortic valve stenosis; Translations: [History of aortic valve replacement] 08-06-2020 Chronic Unclassified (1 source) Unknown / UNK(Unknown) Onset: 12-09-2017 Past or Other Problems Problem Classification Problem Date Documented Da te Episodic/Chronic Unclassified (1 source) GUGG CHEESE DOT RECERT Onset: 12-09-2017 Results Test Name Value Interpretation Reference Range Facil ity Vital Signs Date Time Vital Sign Value Performing Clinician Faci lity 05-08-2021 13:15-0400 Body temperature 97.16 [degF] AN HO MD [facility] 05-08-2021 13:15-0400 Diastolic Blood Pressure NBP 87 1 AN HO MD [facility] 05-08-2021 13:15-0400 Heart rate 60 /min AN HO MD [facility] 05-08-2021 13:15-0400 Heart rate 66 /min AN HO MD [facility] 05-08-2021 13:15-0400 Reason For Taking VItal Signs AN HO MD [facility] 05-08-2021 13:15-0400 Respiratory rate 16 /min AN HO MD [facility] 05-08-2021 13:15-0400 Systolic Blood Pressure NBP 148 1 AN HO MD [facility] 05-08-2021 13:02-0400 Body temperature 97.52 [degF] AN HO MD [facility] 05-08-2021 13:02-0400 Diastolic Blood Pressure NBP 87 1 AN HO MD [facility] 05-08-2021 13:02-0400 Heart rate 64 /min AN HO MD [facility] 05-08-2021 13:02-0400 Mean blood pressure 101 mm[Hg] AN HO MD [facility] 05-08-2021 13:02-0400 Respiratory rate 16 /min AN HO MD [facility] 05-08-2021 13:02-0400 Systolic Blood Pressure NBP 148 1 AN HO MD [facility] 05-08-2021 12:48-0400 Diastolic Blood Pressure NBP 75 1 AN HO MD [facility] 05-08-2021 12:48-0400 Heart rate 66 /min AN HO MD [facility] 05-08-2021 12:48-0400 Mean blood pressure 92 mm[Hg] AN HO MD [facility] 05-08-2021 12:48-0400 Respiratory rate 16 /min AN HO MD [facility] 05-08-2021 12:48-0400 Systolic Blood Pressure NBP 150 1 AN HO MD [facility] 05-08-2021 12:32-0400 Body temperature 97.52 [degF] AN HO MD [facility] 05-08-2021 12:32-0400 Mean blood pressure 105 mm[Hg] AN HO MD [facility] 05-08-2021 10:12-0400 Body height 182.9 cm AN HO MD [facility] 05-08-2021 10:12-0400 Body weight 118 kg AN HO MD [facility] 05-08-2021 10:12-0400 Diastolic blood pressure 91 mm[Hg] AN HO MD [facility] 05-08-2021 10:12-0400 Heart rate 77 /min AN HO MD [facility] 05-08-2021 10:12-0400 Mean blood pressure 110 mm[Hg] AN HO MD [facility] 05-08-2021 10:12-0400 Systolic blood pressure 149 mm[Hg] AN HO MD [facility] Encounters Encounter Date Encounter Type Care Provider Facility Start: 2022 ambulatory [facility] Start: 05-08-2021 End: 05-08-2021 SAME DAY STAY AN HO MD [facility] Start: 12-09-2017 Ambulatory [facility] Fa cility:[facility] Procedures Date Procedure Procedure Detail Performing Clinician Start: 08-22-2020 Aortic valve replace ment and aortoplasty AN HO MD Start: 07-03-2020 Cardiac catheterization AN HO MD Immunizations Immunization Date Immunization Notes Care Provider Fa gema 10-11-2020 SARS-CoV-2 (COVID-19 ) mRNA BNT-162b2 vax AN HO MD [facility] 09-23-2020 SARS-CoV-2 (COVID-19 ) mRNA BNT-162b2 vax AN HO MD [facility] 09-20-2020 SARS-CoV-2 (COVID-19 ) mRNA BNT-162b2 vax AN HO MD [facility] 04-24-2020 influenza virus vacc ine, unspecified formulation AN HO MD [facility] 05-04-2019 influenza virus vacc ine, unspecified formulation AN HO MD [facility] 08-16-2017 tetanus toxoid, redu luis diphtheria toxoid, and acellular pertussis vaccine, adsorbed AN HO MD [facility] 05-10-2017 influenza virus vacc ine, unspecified formulation AN HO MD [facility] 08-14-2016 pneumococcal polysaccharide vaccine, 23 valida HO MD [facility] 06-04-2016 influenza virus vacc ine, unspecified formulation AN HO MD [facility] 08-13-2015 pneumococcal conjuga te vaccine, 13 valent AN HO MD [facility] 05-15-2015 influenza virus vacc ine, unspecified formulation AN HO MD [facility] 06-14-2014 influenza virus vacc ine, unspecified formulation AN HO MD [facility] Payers Date Payer Category Payer Unknown [id number] Medicare [id number] Unknown [id number] Social History Date Type Detail Facility Start: 08-15-2020 Ex-smoker (finding) [facility] Never [facility] Sex Assigned At [facility] Progress note 08-08-2021 Note Date & Type Note Facility 08-08-2021 Note HNO ID: [id number] Author: Sinan Krishnamurthy MA Service: ? Author Type: Em Physician Type: Progress Notes Filed: 08/08/2021 4:03 PM Note Text: POPULATION HEALTH NAVIGATION OUTREACH Action/FYI PCP OFF BOARDING OUTREACH Attempt #1 Spoke with patient , stated pt was now beign seen by provider outside the clinic. PCP updated today to Dr Brannon Drake. Encounter closed. Contact made with patient or family member? YES Pt identified by name and : YES Outreach Outcome/Action Spoke to patient or caregiver: Patient declined PCP field updated Reason for Outreach Attribution: Provider Off-boarding Payer: Payor: MEDICARE / Plan: MEDICARE A AND B / Product Type: Medicare / Care Gap Reviewed:: Annual Wellness visit Controlling Blood Pressure Flu vaccine Reminder: Reminder note to check Health Maintenance for items below Health Maintenance items due: ABDOMINAL AORTIC ANEURYSM SCREENING Never done COVID-19 VACCINE(1) Never done SHINGRIX VACCINE(1 of 2) Never done ANNUAL PCP TEAM CHRONIC DISEASE VISIT due on 02/13/2021 BP CONTROLLED (<130/80) due on 02/13/2021 INFLUENZA(1) due on 03/26/2021 Sinan Krishnamurthy MA August 08, 2021 3:59 PM [facility] Clinical Note 08-08-2021 Note Date & Type Note Facility 08-08-2021 Note Patient Outreach (NE TNAV) BRANNON LUCIA ([id number]) 1950 M Date Time Provider Department 08/08/21 SINAN KRISHNAMURTHY During your visit today, we recorded the following information about you: Sinan Krishnamurthy MA 08/08/2021 4:03 PM Signed POPULATION HEALTH NAVIGATION OUTREACH Action/ PCP OFF BOARDING OUTREACH Attempt #1 Spoke with patient , stated pt was now beign seen by provider outside the clinic. PCP updated today to Dr Brannon Drake. Encounter closed. Contact made with patient or family member? YES Pt identified by name and : YES Outreach Outcome/Action Spoke to patient or caregiver: Patient declined PCP field updated Reason for Outreach Attribution: Provider Off-boarding Payer: Payor: MEDICARE / Plan: MEDICARE A AND B / Product Type: Medicare / Care Gap Reviewed:: Annual Wellness visit Controlling Blood Pressure Flu vaccine Reminder: Reminder note to check Health Maintenance for items below Health Maintenance items due: ABDOMINAL AORTIC ANEURYSM SCREENING Never done COVID-19 VACCINE(1) Never done SHINGRIX VACCINE(1 of 2) Never done ANNUAL PCP TEAM CHRONIC DISEASE VISIT due on 02/13/2021 BP CONTROLLED (<130/80) due on 02/13/2021 INFLUENZA(1) due on 03/26/2021 Sinan Krishnamurthy MA August 08, 2021 3:59 PM Allergies As of Date: 08/08/2021 Noted Allergy Reaction ZOCOR (SIMVASTATIN) 10/18/2009 Comments: myalgia Date Reviewed: 02/14/2020 Reviewed by: Viky ([facility]) MARQUES Fish - Fully Assessed Reason for Visit: Population Health Navigation Outreach [3910] Cmt: Offboarding - Dr Tyrone CRAWFORD Prescriptions as of 08/08/2021 - atorvastatin (LIPITOR) 20 mg tablet TAKE ONE TABLET BY MOUTH EVERY DAY FOR cholesterol - Cholecalciferol, Vitamin D3, 125 mcg (5,000 unit) cap Take 1 capsule by mouth once daily. - Xyyahbcqihg-Egckyreow-Use C-Mn (GLUCOSAMINE CHONDROITIN MAXSTR) 500-400 mg cap Take 1 capsule by mouth twice daily. 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/2008 Administrative Processor's Permit PE (Physical Examination) [Z02.*06/28/2009 Cervical arthritis [M47.812] 02/06/2011 TMJ (dislocation of temporomandibular joint) [S*05/05/2011 Hearing loss [H91.90] 05/05/2011 Morbid obesity [E66.01] 07/25/2012 Arthritis of both knees [M17.0] 06/14/2014 Pain in joint, shoulder region [M25.519] 10/01/2014 08/14/2016 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] 08/13/2015 Hyperlipidemia LDL goal <100 [E78.5] 08/14/2016 Calcific aortic stenosis [I35.0] 09/16/2016 Spondylosis of lumbar region without myelopathy*08/16/2017 Lumbar degenerative disc disease [M51.36] 05/05/2019 Chronic left lumbar radiculopathy [M54.16] 05/05/2019 Vitamin D deficiency [E55.9] 09/04/2019 Depression [F32.A] 02/14/2020 Trigger little finger of right hand [M65.351] 02/14/2020 Encounter Status:Closed by SINAN KRISHNAMURTHY on 08/08/21 [facility] Discharge instructions 05-08-2021 Note Date & Type Note Facility 05-08-2021 Hospital Discharg e instructions Patient Education 05/08/2021 13:26:15 1-SDS Discharge Instructions Template (04/2018) (CUSTOM) [facility]Y SAME DAY SURGERY DISCHARGE INSTRUCTIONS PLEASE FOLLOW THE INSTRUCTIONS BELOW MARKED WITH AN X: _x__ Regular Diet: Start with clear liquids, then soup and crackers and gradually add other foods. _x__ Drink extra fluids. ___ Special Diet Instructions: ___ ACTIVITY: _x__ Avoid stress to suture line. Since you have had an anesthetic, it would be advisable not to drive, drink alcohol, or make major decisions over the next 24 hours. You may require more rest tonight and tomorrow. _x__ May resume regular activity as tolerated. ___ Restrict activity as follows: ___ ___ Walk Only ___ ___ Do not go up and down stairs. ___ Do not ride in car until ___ ___ Do not drive car. ___ Do not have sexual intercourse. ___ No heavy lifting, pushing or straining. _x__ Other: _Follow all verbal and written orders given to you by Dr. Ho. __ BATHING/SHOWERING: ___ Sponge bathe until office visit. ___ Sitting in tub of warm water may relieve discomfort. _x__ May tub bathe _x__ May shower ___ On day after surgery sit in tub of warm water to soak off dressing. DRESSING: ___ Keep operative area dry and clean for ___ ___ Check the operative area for signs of bleeding. Apply pressure to the bleeding site if necessary and call your physician. ___ Change dressing as necessary using sterile dressing material or bandaid. ___ Reinforce dressing as necessary. ___ Change and care for wound as follows: ___ ___ Wear bra for ___ days following breast surgery for comfort. ___ Change drip pad as needed. ___ Wear scrotal support for comfort. WATCH FOR SIGNS OF INFECTION: (Usually appears 36-48 hours after surgery) Increased temperature (101 degrees Fahrenheit or higher) Redness or swelling Increased pain Foul odor or drainage. If you have any questions, please call your doctor at the number listed on your follow up instructions. Follow all instructions given to you by your physician. Please complete and return the survey you will be receiving in the mail to help us better serve our patients. Form: [id number] ([id number]) R: 11/0105/08/2021 13:25:28 Magnetic Resonance Imaging Magnetic Resonance Imaging Magnetic resonance imaging (MRI) is a painless test that produces images of the inside of the body without using X-rays. During an MRI, strong magnets and radio waves work together in a magnetic field to form detailed images. MRI images may provide more details about a medical condition than X-rays, CT scans, and ultrasounds can provide. For a standard MRI, you will lie on a platform that slides into a tunnel. The tunnel contains magnets that scan your body. If you have an open MRI, the tunnel will be open at the sides. In some cases, dye (contrast material or contrast dye) may be injected into your bloodstream to make the MRI images even clearer. Tell a health care provider about: Any surgeries you have had. Any medical conditions you have. Any metal you may have in your body. The magnet used in MRI can cause metal objects in your body to move. Metal can also make it hard to get high-quality images. Objects that may contain metal include: ?Any joint replacement (prosthesis), such as an artificial knee or hip. ?An implanted defibrillator, pacemaker, or neurostimulator. ?A metallic ear implant (cochlear implant). ?An artificial heart valve. ?A metallic object in the eye. ?Metal splinters. ?Bullet fragments. ?A port for delivering insulin or chemotherapy. Any tattoos. Some of the darker inks can cause problems with testing. Whether you are , may be , or are . Any fear of cramped spaces (claustrophobia). If this is a problem, it usually can be managed with medicines given prior to the MRI. Any allergies you have. All medicines you are taking, including vitamins, herbs, eye drops, creams, and wjmy-qeq-qtednmi medicines. What are the risks? Generally, this is a safe test. However, problems can occur: If you have metal in your body, it may be affected by the magnet used during the test. If you have a metallic implant close to the area being tested, it may be hard to get high-quality images. If you are , you should avoid MRI tests during the first three months of . MRI may have effects on an unborn baby. If you are and contrast material will be used during your test, you may need to stop temporarily. Your breast milk may contain contrast material until the material naturally leaves your body. What happens before the procedure? You will be asked to remove all metal, including: ?Your watch, jewelry, and other metal objects. ?Hearing aids. ?Dentures. ?Underwire bra. ?Makeup. Certain kinds of makeup contain small amounts of metal. ?Braces and fillings normally are not a problem. If you are , ask your health care provider if you need to pump before your test and stop temporarily. You may need to do this if contrast material will be used. What happens during the procedure? You may be given earplugs or headphones to listen to music. The MRI machine can be noisy. You will lie down on a platform, similar to a long table. If a contrast material will be used, an IV will be inserted into one of your veins. Contrast material will be injected into your IV at a certain time as images are taken. The platform will slide into a tunnel that has magnets inside of it. When you are inside the tunnel, you will still be able to talk to your health care provider. You will be asked to lie very still while images are taken. Your health care provider will tell you when you can move. You may have to wait a few minutes to make sure that the images produced during the test are readable. When all images are produced, the platform will slide out of the tunnel. The procedure may vary among health care providers and hospitals. What happens after the procedure? You may be taken to a recovery area if sedation medicines were used. Your blood pressure, heart rate, breathing rate, and blood oxygen level will be monitored until you leave the hospital or clinic. If contrast material was used: ?It will leave your body through your urine within a day. You may be told to drink plenty of fluids to help flush the contrast material out of your system. ?If you are , do not breastfeed your child until your health care provider says that this is safe. You may return to your normal activities right away, or as told by your health care provider. It is up to you to get your test results. Ask your health care provider, or the department that is doing the test, when your results will be ready. Summary Magnetic resonance imaging (MRI) is a painless test that produces detailed pictures of the inside of your body without using X-rays. Instead, strong magnets and radio waves work together in a magnetic field to form very detailed and sharp images. Contrast material, also called contrast dye, may be injected into your body to make MRI images even clearer. Before your MRI, be sure to tell your health care provider about any metal you may have in your body. Talk with your health care provider about what your test results mean. This information is not intended to replace advice given to you by your health care provider. Make sure you discuss any questions you have with your health care provider. Document Released: 07/09/2001 Document Revised: 06/06/2018 Document Reviewed: 06/06/2018 [employer] Patient Education 2020 [employer]. Follow Up Care 03/25/2021 16:02:58 With:AN HO MD Address: When: Unknown Comments:Follow-up as needed Follow-up as scheduled [facility] Evaluation + Plan note 08-07-2020 LaboratoryRadiology Note Date & Type Note Facility 08-07-2020 Evaluation + Plan note Future Scheduled Tests.Coronavirus 2019 08/07/20XR Chest 2 Views (PA & Lateral) 09/02/20 [facility] Hospital course Narrative Note Date & Type Note Facility Hospital course Narrative No data available for this section [facility] Summary Purpose Family History No Family History Records FoundNo Family History Records FoundNo Family History Records FoundNo Family History Records Found Advance Directives No Advanced Directives Records FoundNo Advanced Directives Records FoundNo Advanced Directives Records FoundNo Advanced Directives Records Found Additional Source Comments (unrecognized sect ion and content) No Status Records FoundNo Status Records FoundNo Status Records FoundNo Status Records Found INFORMATION SOURCE (unrecogn ized section and content) DATE CREATED AUTHOR AUTHOR'S ORGANIZ ATION 05/14/2021 [facility] DATE CREATED AUTHOR AUTHOR'S ORGANIZ ATION 08/17/2021 [facility] DATE CREATED AUTHOR AUTHOR'S ORGANIZ ATION 07/18/2022 [facility] FOR RECORDS PERTAINING TO PATIENTS WHO ARE OR HAVE BEEN ENROLLED IN A CHEMICAL DEPENDENCY/SUBSTANCEABUSE PROGRAM, SOME INFORMATION MAY BE OMITTED. This clinical summary was aggregated from multiple sources. Caution should be exercised in using it in the provision of clinical care. This summary normalizes information from multiple sources, and as a consequence, information in this document may materially change the coding, format and clinical context of patient data. In addition, data may be omitted in some cases. CLINICAL DECISIONS SHOULD BE BASED ON THE PRIMARY CLINICAL RECORDS. [facility]. provides no warranty or guarantee of the accuracy or completeness of information in this document.
== END | disposition home or self-care (01) ==
PROVIDERS: PCP Family Medicine; Referring Provider Family Medicine; Visit Provider Family Medicine
DX: I35.0 Nonrheumatic aortic (valve) stenosis (principal)
CPT/HCPCS: 93306; Q9957; A4216; C8929

== ENCOUNTER → 2023-11-24 | Outpatient (CLI) | payer MEDICARE, BC, SELFPAY ==
--- NOTE | 2023-11-24 10:28 | VDLE_ITS ---
Reason For Study: Right leg swelling RIGHT LEFT GSV is normal. CFV is compressible, spontaneous, phasic, CFV is compressible, spontaneous, phasic, competent, and demonstrates normal competent and demonstrates normal augmentation. augmentation. FV is compressible, spontaneous, phasic, competent and demonstrates normal augmentation. POP V is compressible, spontaneous, phasic, competent and demonstrates normal augmentation. T/P Trunk is compressible. PTV is compressible. RT PerV is compressible. Procedure This is a venous duplex using B-mode, color flow and spectral Doppler. Exam performed in department. A preliminary report was called and/or faxed to [facility]. VL/Venous Duplex US, Unilateral Interpretation Summary There is no evidence of right lower extremity deep vein thrombosis. Right great saphenous vein appears patent and compressible segmentally. Normal flow patterns left common f emoral vein Ordering Physician: Luiz Franco Referring Physician: Marcial Drake Performed By: India Paul RVT
[2023-11-24 10:59] LABS: Erythrocyte Sedimentation Rate 9 mm/hr (0-20)
[2023-11-24 11:01] LABS: Absolute Lymphocyte Count 2.02 X10^3/uL (0.83-4.51); Absolute Neutrophil Count 7.4 X10^3/uL (2.0-7.7); Basophil# 0.04 X10^3/uL; Basophil% 0.4 % (0-1); Eosinophil# 0.35 X10^3/uL; Eosinophils% 3.3 % (0-5); Hematocrit 47.1 % (40-54); Hemoglobin 15.7 g/dL (13.0-16.5); Lymphocyte # 2.02 X10^3/ul (0.83-4.51); Mean Corp Hgb Conc 33.3 g/dL (32-36); Mean Corpuscular Hgb 30.1 pg (27.0-32.0); Mean Corpuscular Volume 90.4 fL (80-94); Monocyte# 0.75 X10^3/uL; NRBC Flagged by Analyzer 0 % (0-5); Neutrophil # 7.44 X10^3/uL (2.7-7.7); Neutrophil % 69.9 % (47-70); Platelet Count 282 K/mm3 (150-450); RBC Distribution Width CV 13.3 % (11.6-14.6); RBC Distribution Width SD 44.3 fl (35.1-43.9); Red Blood Count 5.21 M/mm3 (4.6-6.2); White Blood Count 10.6 K/mm3 (4.4-11.0)
== END | disposition home or self-care (01) ==
PROVIDERS: PCP Family Medicine; Referring Provider Physician Assistant; Visit Provider Physician Assistant
DX: R22.41 Localized swelling, mass and lump, right lower limb (principal)
CPT/HCPCS: 36415; 85025; 85652; 86140; 93971

== ENCOUNTER → 2023-11-25 | Outpatient (CLI) | payer MEDICARE, BC, SELFPAY ==
[2023-11-25 12:24] LABS: Hematocrit 48.6 % (40-54); Hemoglobin 15.4 g/dL (13.0-16.5); Mean Corp Hgb Conc 31.7 g/dL (32-36); Mean Corpuscular Hgb 28.9 pg (27.0-32.0); Mean Corpuscular Volume 91.4 fL (80-94); Mean Platelet Vol. 12.4 fl (6.2-12.0); Platelet Count 227 K/mm3 (150-450); RBC Distribution Width CV 13.4 % (11.6-14.6); RBC Distribution Width SD 45.5 fl (35.1-43.9); Red Blood Count 5.32 M/mm3 (4.6-6.2); White Blood Count 9.1 K/mm3 (4.4-11.0)
[2023-11-25 12:36] LABS: ALB/GLOB Ratio 0.9 RATIO (0.9-2.4); AST(SGOT) 17 U/L (15-37); Alanine Aminotransfer ALT/SGPT 25 U/L (16-61); Albumin, Serum 3.6 g/dL (3.2-5.0); Alkaline Phosphatase 95 U/L (45-117); Anion Gap 2 (5-15); BUN 17 mg/dL (7-18); BUN/Creat Ratio 15.7 RATIO (10-20); Calcium,Total 10.4 mg/dL (8.5-10.1); Chloride 109 mmol/L (98-107); Creatinine, Serum 1.08 mg/dL (0.70-1.30); EST Glomerular Filtration Rate 71 mL/min (>60); Est Glom Filt Rate - Afr Amer 86 mL/min (>60); Globulin 4.1 g/dL (2.2-4.2); Glucose 102 mg/dL (74-106); Phosphorus 2.6 mg/dL (2.5-4.9); Potassium 4.4 mmol/L (3.5-5.1); Protein, Total 7.7 g/dL (6.4-8.2); Sodium Level 139 mmol/L (136-145)
[2023-11-25 12:43] LABS: Vitamin B12 600 pg/mL (211-911)
[2023-11-26 12:10] LABS: ANTINUCLEAR ANTIBODIES DIRECT Negative (Negative)
[2023-11-30 01:07] LABS: Vitamin B1, Thiamine 131.8 nmol/L (66.5-200.0)
== END | disposition home or self-care (01) ==
LOC: MFPLAB 10:17
PROVIDERS: PCP Family Medicine; Visit Provider Family Medicine
DX: G62.9 Polyneuropathy, unspecified (principal)
CPT/HCPCS: 36415; 80053; 82607; 84100; 84425; 85027; 86038

== ENCOUNTER → 2024-02-03 | Outpatient (CLI) | payer MEDICARE, BC, SELFPAY ==
[2024-02-03 12:24] LABS: Hematocrit 46.8 % (40-54); Hemoglobin 15.2 g/dL (13.0-16.5); Mean Corp Hgb Conc 32.5 g/dL (32-36); Mean Corpuscular Hgb 29.5 pg (27.0-32.0); Mean Corpuscular Volume 90.9 fL (80-94); Mean Platelet Vol. 11.9 fl (6.2-12.0); Platelet Count 250 K/mm3 (150-450); RBC Distribution Width CV 13.6 % (11.6-14.6); RBC Distribution Width SD 45.6 fl (35.1-43.9); Red Blood Count 5.15 M/mm3 (4.6-6.2); Vitamin D,25 Hydroxy 29.2 ng/mL; White Blood Count 7.7 K/mm3 (4.4-11.0)
[2024-02-03 12:33] LABS: AST(SGOT) 18 U/L (15-37); Alanine Aminotransfer ALT/SGPT 23 U/L (16-61); Albumin, Serum 3.6 g/dL (3.2-5.0); Alkaline Phosphatase 95 U/L (45-117); Anion Gap 6 (5-15); BUN 18 mg/dL (7-18); BUN/Creat Ratio 18.3 RATIO (10-20); Bilirubin, Direct 0.25 mg/dL (0.00-0.30); Calcium,Total 10.2 mg/dL (8.5-10.1); Chloride 107 mmol/L (98-107); Cholesterol 153 mg/dL (200); Creatinine, Serum 0.98 mg/dL (0.70-1.30); EST Glomerular Filtration Rate 79 mL/min (>60); Est Glom Filt Rate - Afr Amer 96 mL/min (>60); Globulin 3.9 g/dL (2.2-4.2); Glucose 94 mg/dL (74-106); High Density Lipoprotein 40 mg/dL; PSA,Total - Annual Screen 2.72 ng/mL (0.00-4.00); Potassium 4.5 mmol/L (3.5-5.1); Protein, Total 7.5 g/dL (6.4-8.2); Sodium Level 137 mmol/L (136-145); Triglycerides 139 mg/dL; Very Low Density Lipoprotein 28 mg/dL (5-40)
== END | disposition home or self-care (01) ==
LOC: MFPLAB 09:51
PROVIDERS: PCP Family Medicine; Visit Provider Family Medicine
DX: E55.9 Vitamin D deficiency, unspecified (principal); E78.5 Hyperlipidemia, unspecified; Z12.5 Encounter for screening for malignant neoplasm of prostate; E80.6 Other disorders of bilirubin metabolism
CPT/HCPCS: 36415; 80048; 80061; 80076; 82306; 84153; 85027; G0103

== ENCOUNTER → 2024-03-28 | Outpatient (CLI) | payer MEDICARE, BC, SELFPAY ==
[2024-03-28 16:00] LABS: T4 Free Direct 0.72 ng/dL (0.76-1.46)
[2024-03-28 18:29] LABS: Vitamin B12 553 pg/mL (211-911)
[2024-03-30 18:08] LABS: Anti-Thyroglobulin AB < 1.0 IU/mL (0.0-0.9); Lyme Scn Total Ab w/Rflx Negative (Negative); Thyroglobulin, Serum Qt. 2.4 ng/mL (1.4-29.2); Thyroid Peroxidase AB 43 IU/mL (0-34)
== END | disposition home or self-care (01) ==
LOC: MFPLAB 13:45
PROVIDERS: PCP Family Medicine; Visit Provider Family Medicine
DX: R79.89 Other specified abnormal findings of blood chemistry (principal); R53.83 Other fatigue
CPT/HCPCS: 36415; 82607; 84432; 84439; 84443; 86376; 86618; 86800

== ENCOUNTER → 2024-07-28 | Outpatient (CLI) | payer MEDICARE, BC, SELFPAY ==
[2024-07-28 10:23] LABS: Absolute Lymphocyte Count 1.97 X10^3/uL (0.83-4.51); Absolute Neutrophil Count 5.8 X10^3/uL (2.0-7.7); Basophil# 0.04 X10^3/uL; Basophil% 0.4 % (0-1); Eosinophils% 3.4 % (0-5); Hematocrit 44.8 % (40-54); Hemoglobin 14.6 g/dL (13.0-16.5); Lymphocyte # 1.97 X10^3/ul (0.83-4.51); Lymphocyte % 22.1 % (19-41); Mean Corp Hgb Conc 32.6 g/dL (32-36); Mean Corpuscular Hgb 29.1 pg (27.0-32.0); Mean Corpuscular Volume 89.2 fL (80-94); Mean Platelet Vol. 12.3 fl (6.2-12.0); Monocyte# 0.78 X10^3/uL; Monocyte% 8.7 % (0-10); NRBC Flagged by Analyzer 0 % (0-5); Neutrophil # 5.81 X10^3/uL (2.7-7.7); Neutrophil % 65.1 % (47-70); Platelet Count 198 K/mm3 (150-450); RBC Distribution Width CV 13.9 % (11.6-14.6); Red Blood Count 5.02 M/mm3 (4.6-6.2); White Blood Count 8.9 K/mm3 (4.4-11.0)
[2024-07-28 11:02] LABS: Vitamin D,25 Hydroxy 31.9 ng/mL
[2024-07-28 11:06] LABS: ALB/GLOB Ratio 0.9 RATIO (0.9-2.4); AST(SGOT) 18 U/L (15-37); Alanine Aminotransfer ALT/SGPT 23 U/L (16-61); Albumin, Serum 3.6 g/dL (3.2-5.0); Alkaline Phosphatase 90 U/L (45-117); Anion Gap 5 (5-15); BUN 17 mg/dL (7-18); Calcium,Total 9.9 mg/dL (8.5-10.1); Chloride 108 mmol/L (98-107); Cholesterol 143 mg/dL (200); EST Glomerular Filtration Rate 78 mL/min (>60); Est Glom Filt Rate - Afr Amer 94 mL/min (>60); Globulin 3.9 g/dL (2.2-4.2); Glucose 97 mg/dL (74-106); High Density Lipoprotein 45 mg/dL; Potassium 4.3 mmol/L (3.5-5.1); Protein, Total 7.5 g/dL (6.4-8.2); Sodium Level 135 mmol/L (136-145); T4 Free Direct 0.97 ng/dL (0.76-1.46); Triglycerides 100 mg/dL; Very Low Density Lipoprotein 20 mg/dL (5-40)
== END | disposition home or self-care (01) ==
LOC: MFPLAB 08:33
PROVIDERS: PCP Family Medicine; Referring Provider Family Medicine; Visit Provider Family Medicine
DX: E55.9 Vitamin D deficiency, unspecified (principal); R79.89 Other specified abnormal findings of blood chemistry; I10 Essential (primary) hypertension
CPT/HCPCS: 36415; 80053; 80061; 82306; 84439; 84443; 85025

== ENCOUNTER → 2024-08-17 | Outpatient (CLI) | payer MEDICARE, BC, SELFPAY ==
--- NOTE | 2024-08-17 13:00 | ECHOCS_ITS ---
Reason For Study: THORACIC AROTIC ECTASIA Procedure This was a 2D Doppler, Color Flow transthoracic echocardiogram. The study was technically difficult. Contrast injection was performed. Exam performed in department. Left Ventricle Normal LV size. Left ventricular systolic function is normal. The left ventricular ejection fraction is 65 %. Stage 1 diastolic dysfunction. No regional wall motion abnormalities noted. Right Ventricle Normal RV size. Normal systolic function. Atria Normal left atrium. Normal right atrium. Mitral Valve There is mild to moderate mitral annular calcification. Tricuspid Valve Normal tricuspid valve. Mild tricuspid valve insufficiency. Pulmonary artery systolic pressure is 28 mmHg. Aortic Valve Peak aortic valve gradient 19 mmHg. Mean aortic valve gradient 10 mmHg. Bioprosthetic aortic valve. Pulmonic Valve Normal pulmonic valve. Great Vessels Mild to moderately dilated aortic root. The pulmonary artery is normal size. Normal inferior vena cava. Pericardium/Pleural No pericardial effusion. Medication 22 gauge I.V. with prn adaptor inserted into right arm. Diluted definity 1.5ml given slow IV push to enhance endocardial definition. MMode/2D Measurements & Calculations LVIDd: 4.9 cm IVSd: 1.3 cm LVOT diam: 2.0 cm LVIDs: 2.7 cm LVPWd: 1.1 cm RVDd: 4.5 cm FS: 45.4 % LVOT area: 3.1 cm2 asc Aorta Diam: 4.4 cm LAV(MOD-bp): 40.9 ml LVAd ap4: 35.2 cm2 LAV(MOD-bp) Indexed: 16.6 ml/m2 LVLd ap4: 8.8 cm LAV(MOD-sp2): 42.4 ml EDV(MOD-sp4): 114.6 ml LAV(MOD-sp4): 33.1 ml EDV(sp4-el): 119.2 ml LVAs ap4: 18.7 cm2 LVLs ap4: 6.9 cm ESV(MOD-sp4): 43.1 ml ESV(sp4-el): 43.2 ml EF(MOD-sp4): 62.4 % EF(sp4-el): 63.8 % LVAd ap2: 37.4 cm2 SV(MOD-sp4): 71.5 ml SV(MOD-sp2): 76.9 ml LVLd ap2: 9.2 cm SI(MOD-sp4): 29.1 ml/m2 SI(MOD-sp2): 31.3 ml/m2 EDV(MOD-sp2): 122.4 ml EDV(sp2-el): 128.9 ml LVAs ap2: 20.1 cm2 LVLs ap2: 7.4 cm ESV(MOD-sp2): 45.5 ml ESV(sp2-el): 46.3 ml EF(MOD-sp2): 62.8 % SV(sp4-el): 76.0 ml Ao sinus diam: 3.[address] Junction: 2.7 cm LA dimension(2D): 4.8 cm LA A4 area: 14.4 cm2 RA A4 area: 16.9 cm2 TAPSE: 1.7 cm Time Measurements MV dec time: 0.20 sec Doppler Measurements & Calculations MV E max girish: 72.5 cm/sec Lat Peak E' Girish: 9.4 cm/sec Med Peak E' Girish: 8.5 cm/sec MV A max girish: 99.6 cm/sec E/E' lat: 7.7 E/E' med: 8.6 MV E/A: 0.73 MV dec slope: 360.8 cm/sec2 Ao V2 max: 215.8 cm/sec LV V1 max: 121.5 cm/sec Ao max P.6 mmHg LV V1 max P.9 mmHg Ao V2 mean: 151.0 cm/sec LV V1 mean P.2 mmHg Ao mean P.3 mmHg LV V1 mean: 84.4 cm/sec Ao V2 VTI: 44.7 cm LV V1 VTI: 23.8 cm AV (velocity ratio): 0.53 RAY(I,D): 1.6 cm2 RAY(V,D): 1.7 cm2 SV(LVOT): 73.1 ml PA V2 max: 95.3 cm/sec TR max girish: 247.4 cm/sec TR max P.5 mmHg ECHO/Echo Complete W/ Contrast Interpretation Summary Normal LV size. Left ventricular systolic function is normal. The left ventricular ejection fraction is 65 %. Mild to moderately dilated aortic root. Stage 1 diastolic dysfunction. Bioprosthetic aortic valve. Mean aortic valve gradient 10 mmHg. Contrast injection was performed. Ordering Physician: Marcial Drake Referring Physician: Marcial Drake Performed By: Maira Whiting RDCS
--- NOTE | 2024-08-17 13:00 | CDU_ITS ---
Reason For Study: Thoracic Aorta Ectasia Rt. Velocities/BP Lt. Velocities/BP Prox CCA 93.7/13.9 cm/sec. Prox CCA 126.6/15.2 cm/sec. Mid CCA 67.9/15.1 cm/sec. Mid CCA 95.5/15.2 cm/sec. Dist CCA 63.0/11.4 cm/sec. Dist CCA 73.6/11.5 cm/sec. Prox ICA 70.4/12.6 cm/sec. Prox ICA 69.2/18.6 cm/sec. Mid ICA 68.8/20.7 cm/sec. Mid ICA 62.2/18.6 cm/sec. Dist ICA 66.7/22.8 cm/sec. Dist ICA 44.4/10.7 cm/sec. Rt. ICA/CCA = 1.0. Lt. ICA/CCA = 0.7. Prox ECA 182.0/10.7 cm/sec. Prox ECA 122.9/13.3 cm/sec. Rt. Vert. 50.7/15.1 cm/sec. Lt. Vert. 51.7/11.6 cm/sec. Right Extracranial There is homogeneous, irregular atherosclerotic plaque noted in the right common carotid artery. There is heterogeneous, irregular atherosclerotic plaque noted in the right internal carotid artery. There is intimal thickening but no significant atherosclerotic plaque noted in the right external carotid artery. Antegrade flow is noted in the right vertebral artery. Left Extracranial There is intimal thickening but no significant atherosclerotic plaque noted in the left common carotid artery. There is heterogeneous, irregular atherosclerotic plaque noted in the left internal carotid artery. There is heterogeneous, irregular atherosclerotic plaque noted in the left external carotid artery. Antegrade flow is noted in the left vertebral artery. Procedure Carotid Duplex [id number]. This is a Carotid Duplex examination using B-mode, color flow and specral Doppler. Exam performed in department. VL/Carotid Duplex Ultrasound Interpretation Summary Mild (<50%) stenosis right extracranial internal carotid. Mild (<50%) stenosis left extracranial internal carotid. Patent and antegrade vertebrals bilaterally. Ordering Physician: Marcial Drake Referring Physician: Marcial Drake Performed By: India Paul RVT and Student
== END | disposition home or self-care (01) ==
LOC: CVS 12:55
PROVIDERS: PCP Family Medicine; Referring Provider Family Medicine; Visit Provider Family Medicine
DX: I65.23 Occlusion and stenosis of bilateral carotid arteries (principal); I77.810 Thoracic aortic ectasia
CPT/HCPCS: 93306; 93880; Q9957; A4216; C8929

== ENCOUNTER → 2024-10-17 | Outpatient (CLI) | payer MEDICARE, BC, SELFPAY ==
--- NOTE | 2024-10-17 14:52 | CT_ITS ---
EXAM: CT angiogram of the chest with contrast. CLINICAL HISTORY: Dyspnea. Follow-up of aortic valvular replacement surgery. COMPARISON: July 03, 2022. TECHNIQUE: 2D and 3D multiplanar images of the chest were obtained following administration of 100 mL of intravenous Isovue 370. FINDINGS: Changes of remote median sternotomy are noted. Mediastinal clips are seen. Artifact from metallic aortic valvular prosthesis is seen. Coronary arterial calcifications are identified. Heart is normal in size. There is no evidence of pericardial effusion. The lungs are mildly in generally emphysematous but nearly fully clear with minimal dependent atelectatic change now seen posterior basilar segment of the right lower lobe. Diffuse mild mixed fibrofatty and calcific plaquing is seen in the great vessels. There is no evidence of thoracic aortic aneurysm or dissection. No abnormal mediastinal or hilar lymph nodes are identified. Central and main pulmonary arteries are normal in caliber and are clear of any atrial thrombus. Lobar and more peripheral pulmonary arteries are also normal. Below the hemidiaphragms, visualized portions of the liver remain unremarkable. Spleen is normal. Gallbladder appears partially contracted and several tiny dependent radiopaque calculi seen within its lumen. The gallbladder fundus is below the field of view. Review of bone windows reveals no evidence for suspicious osseous lesion. An old likely posttraumatic Schmorl's node is seen along the anterior aspect of the upper T6 endplate. Minor anterior wedging of the T6, T7, and T8 vertebral bodies is noted. CT/CTA Chest W/WO Contrast IMPRESSION: No evidence of acute intrathoracic pathology. Emphysema with remote postsurgical changes as described. Cholelithiasis. Reading Location: [place] [id number]
== END | disposition home or self-care (01) ==
LOC: CT 14:46
PROVIDERS: PCP Family Medicine; Referring Provider Internal Medicine Cardiovascular Disease; Visit Provider Internal Medicine Cardiovascular Disease
DX: I77.810 Thoracic aortic ectasia (principal); I77.89 Other specified disorders of arteries and arterioles
CPT/HCPCS: 71275; Q9967; A4216

== ENCOUNTER → 2024-11-28 | Outpatient (CLI) | payer MEDICARE, BC, SELFPAY ==
[2024-11-28 10:25] LABS: Absolute Lymphocyte Count 2.37 X10^3/uL (0.83-4.51); Absolute Neutrophil Count 4.9 X10^3/uL (2.0-7.7); Basophil# 0.05 X10^3/uL; Basophil% 0.6 % (0-1); Eosinophil# 0.43 X10^3/uL; Eosinophils% 4.9 % (0-5); Hematocrit 45.6 % (40-54); Hemoglobin 15.1 g/dL (13.0-16.5); Lymphocyte # 2.37 X10^3/ul (0.83-4.51); Lymphocyte % 27.3 % (19-41); Mean Corp Hgb Conc 33.1 g/dL (32-36); Mean Corpuscular Hgb 29.6 pg (27.0-32.0); Mean Corpuscular Volume 89.4 fL (80-94); Mean Platelet Vol. 11.9 fl (6.2-12.0); Monocyte# 0.89 X10^3/uL; Monocyte% 10.2 % (0-10); NRBC Flagged by Analyzer 0 % (0-5); Neutrophil # 4.92 X10^3/uL (2.7-7.7); Neutrophil % 56.7 % (47-70); Platelet Count 240 K/mm3 (150-450); RBC Distribution Width CV 13.3 % (11.6-14.6); RBC Distribution Width SD 43.6 fl (35.1-43.9); White Blood Count 8.7 K/mm3 (4.4-11.0)
[2024-11-28 11:28] LABS: ALB/GLOB Ratio 1.2 RATIO (0.9-2.4); AST(SGOT) 22 U/L (<=37); Alanine Aminotransfer ALT/SGPT 21 U/L (<=46); Alkaline Phosphatase 78 U/L (40-129); Anion Gap 7 (5-15); BUN 16 mg/dL (4-19); BUN/Creat Ratio 15.2 RATIO (10-20); Calcium,Total 10.6 mg/dL (7.6-11.0); Chloride 105 mmol/L (98-108); Cholesterol 144 mg/dL (<=200); Creatinine, Serum 1.07 mg/dL (0.70-1.20); EST Glomerular Filtration Rate 73 (>60); Globulin 3.3 g/dL (2.2-4.2); Glucose 101 mg/dL (70-99); High Density Lipoprotein 34 mg/dL; Low Density Lipoprotein Calc. 76 mg/dL; Magnesium 2.1 mg/dL (1.5-2.2); Potassium 4.6 mmol/L (3.3-5.1); Protein, Total 7.3 g/dL (5.9-8.4); Sodium Level 137 mmol/L (133-145); Total Bilirubin 1.18 mg/dL (0.00-1.30); Triglycerides 168 mg/dL; Very Low Density Lipoprotein 34 mg/dL (5-40); Vitamin D,25 Hydroxy 34.8 ng/mL (30-100)
== END | disposition home or self-care (01) ==
LOC: MFPLAB 09:14
PROVIDERS: PCP Family Medicine; Referring Provider Family Medicine; Visit Provider Family Medicine
DX: R73.09 Other abnormal glucose (principal); I10 Essential (primary) hypertension; E55.9 Vitamin D deficiency, unspecified
CPT/HCPCS: 36415; 80053; 80061; 82306; 83036; 83735; 84439; 84443; 85025

== ENCOUNTER → 2025-03-28 | Outpatient (CLI) | payer MEDICARE, BC, SELFPAY ==
[2025-03-28 16:21] LABS: PSA,Total - Annual Screen 3.02 ng/mL (0.02-4.00)
== END | disposition home or self-care (01) ==
LOC: MFPLAB 11:33
PROVIDERS: PCP Family Medicine; Visit Provider Family Medicine
DX: Z12.5 Encounter for screening for malignant neoplasm of prostate (principal)
CPT/HCPCS: 36415; 84153; 86376; 86800; G0103